=== PATIENT | female | born 1965 | race Caucasian/White ===

== ENCOUNTER 2016-08-30 13:47 | Inpatient (IN) | payer SELFPAY ==
[~2016-08-30] VITALS: Ht 180.3 cm; Wt 76.9 kg
[~2016-08-30 13:47] MED LIST: ALBU8I INH; BETAM.05%T TOP; DIPH2%T PO; FOLI1 PO; IBUP400 PO; METH2.5 PO
[2016-08-30 13:48] VITALS: BP 130/83; PULSE 95; RESP 20; TEMP 97.8; O2SAT 97
--- NOTE | 2016-08-30 13:56 | PD ---
Physical Exam Time Seen by Provider: 13:54 Narrative 51yo F c/o L hand pain, L rib cage pain and bruising, and L scalp swelling after tripping and falling on August 27. Does not know if LOC. Patient was intoxicated w/fall. Denies vomiting after fall. Patient seen in triage. VS reviewed. Awaiting bed placement. Data Data Last Documented VS Vital Signs Date Time Temp Pulse Resp B/P Pulse Ox O2 Delivery O2 Flow Rate FiO2 08/30/16 13:48 97.8 95 20 130/83 97 Room Air MDM Supervised Visit with ASHLEIGH: Janis Ortiz Aug 30, 2016 13:56
[2016-08-30] MEDS ORDERED: DEXAMETHASONE SOD PHOS 4 MG/ML VIAL IV PUSH ONE (14:45)
--- NOTE | 2016-08-30 14:48 | RADRPT ---
EXAM DATE/TIME: 08/30/2016 14:33 [facility] COMPARISON: No previous studies available for comparison. INDICATIONS : Fall 3 days ago, continued cephalgia. RADIATION DOSE: 45.03 CTDIvol (mGy) MEDICAL HISTORY : None SURGICAL HISTORY : None. ENCOUNTER: Initial ACUITY: 3 days PAIN SCALE: 4/10 LOCATION: Bilateral cranial TECHNIQUE: Multiple contiguous axial images were obtained of the head. Using automated exposure control and adj ustment of the mA and/or kV according to patient size, radiation dose was kept as low as reasonably a chievable to obtain optimal diagnostic quality images. DICOM format image data is available electro nically for review and comparison. FINDINGS: CEREBRUM: There is a large spontaneously dense mass in the region of the corpus callosum measuring 3.1 x 4.0 cm . There is surrounding vasogenic edema. This mass is causing mass effect on the frontal horn of both ventricles. The ventricles are normal in size. There is no midline shift. No other areas of hemorrhag e are demonstrated. POSTERIOR FOSSA: The cerebellum and brainstem are intact. The 4th ventricle is midline. The cerebellopontine angle i s unremarkable. EXTRACRANIAL: The visualized portion of the orbits is intact. SKULL: The calvaria is intact. No evidence of skull fracture. The findings are called by telephone to the ER physician. CONCLUSION: There is a large hemorrhagic mass involving the corpus callosum measuring 4.1 x 3.1 cm surrounded by vasogenic edema. These findings are highly suspicious for neoplastic disease. Recommend MRI of the br ain with and without contrast for further evaluation. Aleksander Sanabria MD on August 30, 2016 at 14:40 Board Certified Radiologist. This report was verified electronically.
[2016-08-30 15:41] LABS: BASOPHIL % 0.7 % (0.0-2.0); EOSINOPHIL # 0.1 TH/MM3 (0-0.4); EOSINOPHIL % 2.1 % (0.0-4.0); HEMATOCRIT 39.7 % (35.0-46.0); HEMO FLAGS DIFF FINAL; LYMPH % 19.9 % (9.0-44.0); LYMPHOCYTE # 1.2 TH/MM3 (1.0-4.8); MEAN CORPUSCULAR HEMOGLOBIN 32.1 PG (27.0-34.0); MEAN CORPUSCULAR HGB CONC 33.4 % (32.0-36.0); MONO % 8.3 % (0.0-8.0); PLATELET COUNT 180 TH/MM3 (150-450); RED BLOOD COUNT 4.14 MIL/MM3 (4.00-5.30); RED CELL DISTRIBUTION WIDTH 12.5 % (11.6-17.2); WHITE BLOOD COUNT 5.8 TH/MM3 (4.0-11.0)
[2016-08-30 15:50] LABS: APTT (PATIENT) 26.5 SEC (24.3-30.1); INTERNATIONAL NORMALIZED RATIO 0.9 RATIO; PROTHROMBIN TIME - PATIENT 10.3 SEC (9.8-11.6)
--- NOTE | 2016-08-30 16:05 | RADRPT ---
EXAM DATE/TIME: 08/30/2016 15:39 [facility] COMPARISON: No previous studies available for comparison. INDICATIONS : Fall, complains of pain of posterior left ribs. MEDICAL HISTORY : None. SURGICAL HISTORY : None. ENCOUNTER: Initial ACUITY: 4 - 6 days PAIN SCORE: 10/10 LOCATION: Left posterior ribs FINDINGS: Multiple views of the left ribs were performed. There is no evidence of displaced fracture. No dest ructive lesions or areas of periosteal thickening are seen. Expiratory view of the chest is negative for pneumothorax. The mediastinal structures are midline. CONCLUSION: Negative left rib series. Dani Silva MD on August 30, 2016 at 16:03 Board Certified Radiologist. This report was verified electronically.
--- NOTE | 2016-08-30 16:07 | RADRPT ---
EXAM DATE/TIME: 08/30/2016 15:41 [facility] COMPARISON: No previous studies available for comparison. INDICATIONS : Fall, complains of pain and bruising of left [id number],4th and 5th metacarpals. MEDICAL HISTORY : None. SURGICAL HISTORY : None. ENCOUNTER: Initial ACUITY: 4 - 6 days PAIN SCORE: 10/10 LOCATION: Left hand FINDINGS: The osseous structures of the hand are in normal alignment. No significant degenerative changes. Th e shaft of the 5th metacarpal bone is intact. There is some faint linear calcification in the soft t issues adjacent to the medial 1st digit metacarpophalangeal joint which is of uncertain significance; an avulsion injury cannot be excluded. The carpus is in normal alignment.. CONCLUSION: 1. The metacarpal bones are intact. 2. Calcifications adjacent to the medial aspect of the 1st digit MCP joint of uncertain significance, could represent avulsion injury. Recommend correlation clinically sent for point tenderness in this area. Dani Silva MD on August 30, 2016 at 16:03 Board Certified Radiologist. This report was verified electronically.
--- NOTE | 2016-08-30 16:08 | RADRPT ---
EXAM DATE/TIME: 08/30/2016 15:42 [facility] COMPARISON: No previous studies available for comparison. INDICATIONS : Fell, complains of pain and bruising of left medial wrist MEDICAL HISTORY : None. SURGICAL HISTORY : None. ENCOUNTER: Initial ACUITY: 4 - 6 days PAIN SCORE: 10/10 LOCATION: Left medial wrist FINDINGS: An abduction view of the left carpus navicular demonstrates a normal configuration without evidence o f fracture. CONCLUSION: No navicular fracture seen. Dani Silva MD on August 30, 2016 at 16:06 Board Certified Radiologist. This report was verified electronically.
[2016-08-30 16:15] LABS: BICARBONATE 28.9 MEQ/L (21.0-32.0); POTASSIUM 3.5 MEQ/L (3.5-5.1)
[2016-08-30] MEDS ORDERED: LORazepam 2 MG/ML VIAL IV PUSH ONE (16:45)
[2016-08-30] MEDS ORDERED: GADODIAMIDE PF 287 MG/ML 20 ML VIAL (for RAD MRI) IV ONE (17:48)
--- NOTE | 2016-08-30 17:56 | PD ---
HPI Chief Complaint: Fall Time Seen by Provider: 14:23 Travel History International Travel<30 days: No Contact w/Intl Traveler<30days: No Traveled to known affect area: No History of Present Illness HPI 51-year-old female with a history of psoriasis, who presents today with complaints of head pain, left rib pain, left wrist pain after mechanical fall on August 27. The patient states she was drinking with friends and became extremely intoxicated. She states she reportedly tripped and fell to the ground. She does not recall falling to the ground. She reports pain at the top of her head. She denies any weakness of her extremities. There is no blurry vision. There is no neck pain or stiffness. There are no other complaints time my examination. PFSH Past Medical History Asthma: Yes COPD: Yes Cerebrovascular Accident: Yes (10 yrs ago) Diminished Hearing: No Respiratory: Yes (asthma) Integumentary: Yes (psoriasis) Immunizations Current: Yes Tetanus Vaccination: < 5 Years Influenza Vaccination: No ?: Not Menopausal: Yes Social History Alcohol Use: Yes Tobacco Use: Yes Substance Use: No Allergies-Medications (Allergen,Severity, Reaction): Coded Allergies: Penicillin (Verified Allergy, Severe, Nausea/Vomiting, 12/31/13) Reported Meds & Prescriptions Reported Meds & Active Scripts Active Review of Systems Except as stated in HPI: all other systems reviewed are Neg General / Constitutional: No: Fever, Chills Eyes: No: Diploplia, Blurred Vision HENT: Positive: Headaches, No: Neck Pain Cardiovascular: No: Chest Pain or Discomfort, Palpitations Respiratory: No: Cough, Shortness of Breath Gastrointestinal: No: Nausea, Vomiting, Abdominal Pain Genitourinary: No: Dysuria, Incontinence Musculoskeletal: Positive: Pain (left upper lateral ribs and left wrist/hand) Neurologic: Positive: Headache, No: Weakness, Dizziness, Incontinence, Seizures Physical Exam Narrative GENERAL: Developed well-nourished female in no acute rest her distress. SKIN: Focused skin assessment warm/dry. HEAD: Atraumatic. Normocephalic. EYES: Pupils equal and round. No scleral icterus. No injection or drainage. ENT: No nasal bleeding or discharge. Mucous membranes pink and moist. NECK: Trachea midline. Supple. No posterior spinous process tenderness. CARDIOVASCULAR: Regular rate and rhythm. No murmur appreciated. RESPIRATORY: No accessory muscle use. Clear to auscultation. Breath sounds equal bilaterally. Bruising to the left upper lateral ribs. No crepitance no deformity. GASTROINTESTINAL: Abdomen soft, non-tender, nondistended. Hepatic and splenic margins not palpable. MUSCULOSKELETAL: No obvious deformities. Patient has bruising to her left dorsum of her hand. She does have tenderness over the snuffbox. NEUROLOGICAL: Awake and alert. No obvious cranial nerve deficits. Motor grossly within normal limits. Normal speech. PSYCHIATRIC: Appropriate mood and affect; insight and judgment normal. Data Data Last Documented VS Vital Signs Date Time Temp Pulse Resp B/P Pulse Ox O2 Delivery O2 Flow Rate FiO2 08/30/16 13:48 97.8 95 20 130/83 97 Room Air Orders Hand, Complete ([id number]) (08/30/16 14:16) Ct Brain W/O Iv Contrast(Rout) (08/30/16 14:16) Ribs, Uni (W/Exp Cxr-Min 3vw) (08/30/16 14:16) Wrist, Navicular Views (08/30/16 ) Mri Brain W&W/O Contrast (08/30/16 ) Complete Blood Count With Diff (08/30/16 14:43) Basic Metabolic Panel (Bmp) (08/30/16 14:43) Prothrombin Time / Inr (Pt) (08/30/16 14:43) Act Partial Throm Time (Ptt) (08/30/16 14:43) Dexamethasone Inj (Decadron Inj) (08/30/16 14:45) Lorazepam Inj (Ativan Inj) (08/30/16 16:45) [facility] (08/30/16 16:58) Labs Laboratory Tests Test 08/30/16 14:58 White Blood Count 5.8 TH/MM3 Red Blood Count 4.14 MIL/MM3 Hemoglobin 13.3 GM/DL Hematocrit 39.7 % Mean Corpuscular Volume 96.0 FL Mean Corpuscular Hemoglobin 32.1 PG Mean Corpuscular Hemoglobin 33.4 % Concent Red Cell Distribution Width 12.5 % Platelet Count 180 TH/MM3 Mean Platelet Volume 8.9 FL Neutrophils (%) (Auto) 69.0 % Lymphocytes (%) (Auto) 19.9 % Monocytes (%) (Auto) 8.3 % Eosinophils (%) (Auto) 2.1 % Basophils (%) (Auto) 0.7 % Neutrophils # (Auto) 4.0 TH/MM3 Lymphocytes # (Auto) 1.2 TH/MM3 Monocytes # (Auto) 0.5 TH/MM3 Eosinophils # (Auto) 0.1 TH/MM3 Basophils # (Auto) 0.0 TH/MM3 CBC Comment DIFF FINAL Differential Comment Prothrombin Time 10.3 SEC Prothromb Time International 0.9 RATIO Ratio Activated Partial 26.5 SEC Thromboplast Time Sodium Level 133 MEQ/L Potassium Level 3.5 MEQ/L Chloride Level 96 MEQ/L Carbon Dioxide Level 28.9 MEQ/L Anion Gap 8 MEQ/L Blood Urea Nitrogen 3 MG/DL Creatinine 0.63 MG/DL Estimat Glomerular Filtration 99 ML/MIN Rate Random Glucose 67 MG/DL Calcium Level 9.2 MG/DL MDM Medical Decision Making Medical Screen Exam Complete: Yes Emergency Medical Condition: Yes Differential Diagnosis Traumatic intracranial bleed versus left rib fractures versus left hand fracture versus navicular fracture. Narrative Course This is a 51-year-old female with a history of psoriasis, presents after having a syncopal episode during August 27. The patient states she was intoxicated and passed out. She does not recall the episode but states that she may have tripped prior to passing out. CT scan shows a intracranial hemorrhage that appears to be associated with a mass. Recommendation was for an MRI with and without contrast. Patient was discussed with Dr. Keenan Vanegas, on-call neurosurgeon, who requested a CT angiogram of the brain. The patient has had this ordered. He asked if we could admit the patient to the ICU medical service and have him as a business development consultant. Case was discussed with Dr. Ferguson, I see wired music operator, who agreed to admit the patient his service. Critical Care Narrative Aggregate critical care time was 45 minutes. Time to perform other separately billable procedures was not included in the critical care time. My time did not include minutes spent treating any other patients simultaneously or on activities that did not directly contribute to the patient's treatment. The services I provided to this patient were to treat and/or prevent clinically significant deterioration that could result in: I provided critical care services requiring my management, as noted below: Chart data review, documentation time, medication orders and management, vital sign assessments/reviewing monitor data, ordering and reviewing lab tests, ordering and interpreting/reviewing x-rays and diagnostic studies, care of the patient and discussion of the patient with the admitting physicians. Diagnosis Primary Impression: Intracranial hemorrhage Additional Impressions: Contusion of rib on left side Contusion of left hand Admitting Information Admitting Physician Requests: Admit Neo Ramirez MD Aug 30, 2016 17:56
[2016-08-30] MEDS ORDERED: HYDROmorphone HCL PF 1 MG/ML VIAL IV PRN ×2 (18:00)
[2016-08-30] MEDS ORDERED: SODIUM CHLORIDE 0.9% FLUSH 5 ML FLUSH IVF PRN (18:00)
[2016-08-30] MEDS ORDERED: NALOXONE HCL 0.4 MG/ML AMP IV PRN (18:00)
[2016-08-30] MEDS ORDERED: ACETAMINOPHEN/HYDROcodone 325 MG/5 MG TAB PO PRN (18:00)
[2016-08-30] MEDS ORDERED: ACETAMINOPHEN/HYDROcodone 325 MG/10 MG TAB PO PRN (18:00)
[2016-08-30] MEDS ORDERED: NS + KCL 20 MEQ INJ 1,000 ML IV SCH (18:00)
[2016-08-30 18:01] VITALS: BP 117/71; PULSE 84; RESP 16; TEMP 98.1; O2SAT 97
[2016-08-30] MEDS ORDERED: RESP: ALBUTEROL 2.5 MG/IPRATROPIUM 0.5 MG NEB (PRN) INH (18:30)
[2016-08-30] MEDS ORDERED: BISACODYL 10 MG SUPP RECTAL PRN (18:30)
[2016-08-30] MEDS ORDERED: CHLORHEXIDINE GLUCONATE 2 % 1 PACK (2 CLOTHS) TOP PRN (18:30)
[2016-08-30] MEDS ORDERED: MAGNESIUM HYDROXIDE SUSP 30 ML CUP PO PRN (18:30)
[2016-08-30] MEDS ORDERED: SENNOSIDES 8.6 MG TAB PO PRN (18:30)
[2016-08-30] MEDS ORDERED: MISCELLANEOUS NURSING INFORMATION XX SCH (18:30)
[2016-08-30] MEDS ORDERED: LACTULOSE SYRUP 20 GM/30 ML CUP PO PRN (18:30)
[2016-08-30] MEDS ORDERED: LABETALOL HCL 100 MG/20 ML VIAL IV PUSH PRN (18:30)
[2016-08-30] MEDS ORDERED: ACETAMINOPHEN 325 MG TAB PO PRN (18:30)
--- NOTE | 2016-08-30 18:38 | HHI.HP ---
[facility] Service Critical Care Medicine Primary Care Physician Tish Power MD Admission Diagnosis intracranial hemorrhage, left rib contusion, left wrist contusion Diagnosis: (1) Intracranial space-occupying lesion found on diagnostic imaging of central nervous system Diagnosis: Principal (2) Intracranial hemorrhage Diagnosis: Principal Chief Complaint: Fall, headache. Travel History International Travel<30 Days: No Contact w/Intl Traveler <30 Da: No Traveled to Known Affected Are: No History of Present Illness 51 y/o woman fell 3 days ago while intoxicated and is amnesic for the cause of the fall. Seen today due to head ache and left chest and hand pain. No nausea, vomiting, seizures, black-outs, fainting. CT Head reveals a large midline mass with hemorrhage. MRI ordered for further clarification. Normotensive. X-rays of left hand, wrist, ribs are negative for injury. Past Family Social History Allergies: Coded Allergies: Penicillin (Verified Allergy, Severe, Nausea/Vomiting, 12/31/13) Past Medical History Past Medical History Asthma: Yes COPD: Yes Cerebrovascular Accident: Yes (10 yrs ago) Diminished Hearing: No Respiratory: Yes (asthma) Integumentary: Yes (psoriasis) Immunizations Current: Yes Tetanus Vaccination: < 5 Years Influenza Vaccination: No ?: Not Menopausal: Yes Social History Alcohol Use: Yes Tobacco Use: Yes Substance Use: No Allergies-Medications Allergies-Medications (Allergen,Severity, Reaction): Coded Allergies: Penicillin (Verified Allergy, Severe, Nausea/Vomiting, 12/31/13) Reported Meds & Prescriptions Reported Meds & Active Scripts Active Physical Exam Vital Signs Vital Signs Date Time Temp Pulse Resp B/P Pulse Ox O2 Delivery O2 Flow Rate FiO2 08/30/16 18:01 98.1 84 16 117/71 97 Room Air 08/30/16 13:48 97.8 95 20 130/83 97 Room Air Physical Exam Gen: Anxious appearing. Head: Bruise left side of forehead, old. Neck: Supple, airway widely patent. Lungs: Clear, no wheezes or crackles. Comfortable pattern. Heart: NL S1S2, no m,r, No JVD, RRR. Abdomen: Soft, non guarding, no tenderness, BS active. Extremities: Warm, well perfused. Neuro: O X 3, alert, cooperative. Moves 4 limbs with 5/5 strengtrh and to command. MARISSA, eoms intact. Shoulder shrug, smile, grimace symmetrical. Tongue midline. Laboratory Laboratory Tests Test 08/30/16 14:58 White Blood Count 5.8 Red Blood Count 4.14 Hemoglobin 13.3 Hematocrit 39.7 Mean Corpuscular Volume 96.0 Mean Corpuscular Hemoglobin 32.1 Mean Corpuscular Hemoglobin 33.4 Concent Red Cell Distribution Width 12.5 Platelet Count 180 Mean Platelet Volume 8.9 Neutrophils (%) (Auto) 69.0 Lymphocytes (%) (Auto) 19.9 Monocytes (%) (Auto) 8.3 Eosinophils (%) (Auto) 2.1 Basophils (%) (Auto) 0.7 Neutrophils # (Auto) 4.0 Lymphocytes # (Auto) 1.2 Monocytes # (Auto) 0.5 Eosinophils # (Auto) 0.1 Basophils # (Auto) 0.0 CBC Comment DIFF FINAL Differential Comment Prothrombin Time 10.3 Prothromb Time International 0.9 Ratio Activated Partial 26.5 Thromboplast Time Sodium Level 133 Potassium Level 3.5 Chloride Level 96 Carbon Dioxide Level 28.9 Anion Gap 8 Blood Urea Nitrogen 3 Creatinine 0.63 Estimat Glomerular Filtration 99 Rate Random Glucose 67 Calcium Level 9.2 Result Diagram: 08/30/16 1458 08/30/[address] Head: Enhancing 3 X 4 cm midline brain mass. Assessment and Plan Assessment and Plan Assessment: 1. 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 Fall while intoxicated. Plan: 1. Admit ICU. 2. Neurosurgical evaluation. 3. Bed rest, up with assistance. 4. Seizure prophylaxis? 5. No chemical DVT Px for now. 6. SCDs. Overall impression: Large, enhancing midline brain mass appears to be arising from the genu of the corpus callosum. There appears to be hemorrhage in the mass but it is unclear whether this is related to her fall 3 days ago. She will require brain biopsy unless metastatic workup reveals an associated lesion in the chest or abdomen (which is doubtful). Neo Duval MD Aug 30, 2016 18:38
[2016-08-30] MEDS ORDERED: IOHEXOL 350 MG/ML 10 ML VIAL (for RAD DIAG) IV ONE (18:47)
--- NOTE | 2016-08-30 18:51 | RADRPT ---
EXAM DATE/TIME: 08/30/2016 16:59 [facility] COMPARISON: No previous studies available for comparison. INDICATIONS : Mass. CONTRAST: 15 cc Omniscan (gadodiamide) IV MEDICAL HISTORY : CVA SURGICAL HISTORY : None. ENCOUNTER: Initial ACUITY: 1 day PAIN SCORE: 10/10 LOCATION: Cranial TECHNIQUE: Multiplanar, multisequence MRI of the brain was performed both prior to and following the administrat ion of paramagnetic contrast. FINDINGS: MRI confirms a large mass involving the corpus callosum showing some hemorrhage and intense contrast enhancement. This is associated with moderate mass effect. There is no other abnormal areas of contrast enhancement. Posterior fossa is unremarkable. CONCLUSION: Glioma versus glioblastoma, glioblastoma is favored involving the genu of the corpus callosum. The a umm is associated with hemorrhage and intense enhancement. Jayme Beauchamp MD FACR on August 30, 2016 at 18:26 Board Certified Radiologist. This report was verified electronically.
[2016-08-30] MEDS: SODIUM CHLOR 0.9% 1000 ML INJ 1,000 ML IV SCH (19:12)
--- NOTE | 2016-08-30 19:24 | RADRPT ---
EXAM DATE/TIME: 08/30/2016 18:26 [facility] COMPARISON: No previous studies available for comparison. INDICATIONS : Evaluate for aneurysm. IV CONTRAST: 75 cc Omnipaque 350 (iohexol) IV RADIATION DOSE: 14.36 CTDIvol (mGy) MEDICAL HISTORY : Cerebrovascular disease. SURGICAL HISTORY : None. ENCOUNTER: Initial ACUITY: 1 day PAIN SCALE: 0/10 LOCATION: cranial TECHNIQUE: Volumetric scanning was performed using a multi-row detector CT scanner. The data was post processed with a variety of visualization algorithms including full volume maximum intensity projection, multi -planar sliding thin slab reformation, curved planar reformation, and surface rendering techniques. Using automated exposure control and adjustment of the mA and/or kV according to patient size, radiat ion dose was kept as low as reasonably achievable to obtain optimal diagnostic quality images. DICO M format image data is available electronically for review and comparison. FINDINGS: There is excellent visualization of the major intracranial arteries out to the second-order branch ve ssels. There is no evidence for aneurysm, vessel truncation or stenosis, and no evidence for vascula r malformation. There is no aneurysm. Large butterfly glioma/glioblastoma is noted. CONCLUSION: There is no aneurysm. Jayme Beauchamp MD FACR on August 30, 2016 at 19:20 Board Certified Radiologist. This report was verified electronically.
[2016-08-30 19:28] VITALS: BP 116/70; PULSE 81; RESP 18; O2SAT 97
--- NOTE | 2016-08-30 19:28 | RADRPT ---
EXAM DATE/TIME: 08/30/2016 18:26 [facility] COMPARISON: No previous studies available for comparison. INDICATIONS : Evaluate for aneurysm. IV CONTRAST: 75 cc Omnipaque 350 (iohexol) IV RADIATION DOSE: CTDIvol (mGy) MEDICAL HISTORY : Cerebrovascular disease. SURGICAL HISTORY : None. ENCOUNTER: Initial ACUITY: 1 day PAIN SCALE: 0/10 LOCATION: cranial Elevated flow velocities and ICA/CCA ratios have been found to correlate with increased degrees of vessel stenosis, calculated as percentage of diameter relative to a normal segment of distal ICA/CCA. TECHNIQUE: Volumetric scanning was performed using a multirow detector CT scanner. The data was post processed with a variety of visualization algorithms including full-volume maximum intensity projection, multip lanar sliding thin-slab reformation, curved-planar reformation, and surface-rendering techniques. Us ing automated exposure control and adjustment of the mA and/or kV according to patient size, radiatio n dose was kept as low as reasonably achievable to obtain optimal diagnostic quality images. DICOM f ormat image data is available electronically for review and comparison. FINDINGS: AORTIC ARCH: There is a three-vessel origin of the great vessels from the aorta. No evidence of ostial narrowing. RIGHT CAROTID: The common carotid artery is intact. The carotid bulb has a normal configuration without ulceration o r narrowing. The internal carotid artery lumen is smooth without stenosis. The external carotid florinda ry is intact. LEFT CAROTID: The common carotid artery is intact. The carotid bulb has a normal configuration without ulceration or narrowing. The internal carotid artery lumen is smooth without stenosis. The external carotid ar luis e is intact. VERTEBRALS: The vertebral arteries have a symmetric diameter. No stenotic lesions are seen. CONCLUSION: Negative for hemodynamically significant stenosis. Jayme Beauchamp MD FACR on August 30, 2016 at 19:24 Board Certified Radiologist. This report was verified electronically.
[2016-08-30 20:40] VITALS: BP 115/72
[2016-08-30] MEDS ORDERED: DOCUSATE SODIUM 100 MG CAP PO SCH (21:00)
[2016-08-30] MEDS: SODIUM CHLORIDE 0.9% FLUSH 5 ML FLUSH IVF SCH (21:00)
--- NOTE | 2016-08-30 21:29 | PD.CONS ---
History of Present Illness Service Neurosurgery Consult Requested By Dr Neo Ramirez Reason for Consult Intracranial hemorrhage Primary Care Physician Tish Power MD Diagnoses: History of Present Illness The patient is a pleasant 51-year-old lady who states that she was rather intoxicated on 27 August and recalls falling and probably striking her head. She does not really seem to recall any details. Since then she has had some pain and swelling over the left forehead and some pain in her left hand. She presented to the emergency room today primarily because of pain in her left rib cage and her left wrist. The course of her emergency room evaluation she has undergone a CT scan of the head which initially revealed a large hemorrhagic mass in the corpus callosum measuring approximately 3 x 4 cm with surrounding vasogenic edema primarily in the right frontal lobe. An MRI and a CT angiogram of the brain have also been subsequently performed. The patient denies any recent headaches. She gives a vague history of occasional migraine headaches. She denies any dizziness, blurred vision diplopia ,speech difficulty, significant memory loss, word finding difficulty, pain weakness and numbness in the upper or lower extremities or difficulty with ambulation or coordination. She indicates general fatigue and decreased appetite over the past few weeks but seems to indicate that this is not unusual for her. No fevers or chills. Review of Systems Constitutional: COMPLAINS OF: Fatigue, DENIES: Fever, Weight loss Eyes: DENIES: Blurred vision, Diplopia Ears, nose, mouth, throat: DENIES: Hearing loss, Vertigo Respiratory: COMPLAINS OF: Shortness of breath, DENIES: Cough Cardiovascular: DENIES: Chest pain, Palpitations Gastrointestinal: DENIES: Diarrhea, Nausea, Vomiting Musculoskeletal: COMPLAINS OF: Joint pain, Back pain, Neck pain Hematologic/lymphatic: COMPLAINS OF: Bruising Neurologic: DENIES: Abnormal gait, Headache, Localized weakness, Poor Balance Psychiatric: DENIES: Anxiety, Confusion Past Family Social History Allergies: Coded Allergies: Penicillin (Verified Allergy, Severe, Nausea/Vomiting, 12/31/13) Past Medical History History of asthma, COPD She states she had a previous stroke many years ago, but upon questioning it appears that she likely had a concussion. Psoriasis Chronic low back pain Past Surgical History Does not indicate any major surgeries in the past Reported Medications She takes Tylenol and a nonsteroidal anti-inflammatory medication in the evenings Family History Negative for diabetes cancer, cardiac disease Social History She smokes half-pack cigarettes a day for many years. Drinks 2 or 3 alcoholic beverages per day. Lives with her significant other. Physical Exam Vital Signs Vital Signs Date Time Temp Pulse Resp B/P Pulse Ox O2 Delivery O2 Flow Rate FiO2 08/30/16 20:40 74 18 115/72 96 08/30/16 19:28 81 18 116/70 97 Room Air 08/30/16 18:01 98.1 84 16 117/71 97 Room Air 08/30/16 13:48 97.8 95 20 130/83 97 Room Air Physical Exam GENERAL: This is a well-nourished, well-developed patient, in no apparent distress. SKIN: No skin lesions or rash. HEAD: Mild tenderness edema and ecchymosis over the left forehead EYES: Sclerae are clear and nonicteric. No periorbital edema or ecchymosis ENT:Oropharynx is clear. Intact dentition. NECK: Trachea midline. Supple, nontender, no meningeal signs. CARDIOVASCULAR: Regular rate and rhythm without murmurs, gallops, or rubs. RESPIRATORY: Clear to auscultation. Breath sounds equal bilaterally. No wheezes , rales, or rhonchi. GASTROINTESTINAL: Abdomen soft, non-tender, nondistended. No hepato-splenomegaly , or palpable masses. No guarding. MUSCULOSKELETAL: Extremities without cyanosis, or edema. Mild lower lumbar tenderness. Posterior tibial pulse 2+ bilateral. No extremity atrophy or fasciculations NEUROLOGICAL: Awake and alert Oriented X 3 Speech is clear. She seems to have mild slowing of her thought processes Conversant and appropriate Follow simple commands well Answers questions appropriately Reasonable judgment and insight Recent and remote memory are intact. Recalls 2 of 3 objects at 5 minutes No evidence of anxiety or depression Pupils are equal and reactive to accommodation. Extra-ocular movements, visual padron to confrontation, facial sensorimotor, tongue, palate, sternocleidomastoid testing, hearing to finger rub testing, and bilateral shoulder shrug are all intact. Sensation is intact to light touch in all extremities Strength normal major flexion and extension groups all extremities Gurinder's absent bilaterally No ankle clonus Plantar responses absent bilateral Fine motor movements intact upper extremities Laboratory Laboratory Tests Test 08/30/16 14:58 White Blood Count 5.8 Red Blood Count 4.14 Hemoglobin 13.3 Hematocrit 39.7 Mean Corpuscular Volume 96.0 Mean Corpuscular Hemoglobin 32.1 Mean Corpuscular Hemoglobin 33.4 Concent Red Cell Distribution Width 12.5 Platelet Count 180 Mean Platelet Volume 8.9 Neutrophils (%) (Auto) 69.0 Lymphocytes (%) (Auto) 19.9 Monocytes (%) (Auto) 8.3 Eosinophils (%) (Auto) 2.1 Basophils (%) (Auto) 0.7 Neutrophils # (Auto) 4.0 Lymphocytes # (Auto) 1.2 Monocytes # (Auto) 0.5 Eosinophils # (Auto) 0.1 Basophils # (Auto) 0.0 CBC Comment DIFF FINAL Differential Comment Prothrombin Time 10.3 Prothromb Time International 0.9 Ratio Activated Partial 26.5 Thromboplast Time Sodium Level 133 Potassium Level 3.5 Chloride Level 96 Carbon Dioxide Level 28.9 Anion Gap 8 Blood Urea Nitrogen 3 Creatinine 0.63 Estimat Glomerular Filtration 99 Rate Random Glucose 67 Calcium Level 9.2 Result Diagram: 08/30/16 1458 08/30/16 1458 Imaging 08/30/16 CT scan of the head, MRI of the brain, and CT angiogram of the brain images have all been reviewed by the undersigned. Agree with findings as noted below: Ribs X-Ray 08/30/161415 Signed Impressions: Service Date/Time: Tuesday, August 30, 2016 15:39 - CONCLUSION: Negative left rib series. Dani Silva MD Head CT 08/30/161415 Signed Impressions: Service Date/Time: Tuesday, August 30, 2016 14:33 - CONCLUSION: There is a large hemorrhagic mass involving the corpus callosum measuring 4.1 x 3.1 cm surrounded by vasogenic edema. These findings are highly suspicious for neoplastic disease. Recommend MRI of the brain with and without contrast for further evaluation. Aleksander Sanabria MD Hand X-Ray 08/30/16 141 Signed Impressions: Service Date/Time: Tuesday, August 30, 2016 15:41 - CONCLUSION: 1. The metacarpal bones are intact. 2. Calcifications adjacent to the medial aspect of the 1st digit MCP joint of uncertain significance, could represent avulsion injury. Recommend correlation clinically sent for point tenderness in this area. Dani Silva MD Wrist X-Ray 08/30/16 0000 Signed Impressions: Service Date/Time: Tuesday, August 30, 2016 15:42 - CONCLUSION: No navicular fracture seen. Dani Silva MD Neck CTA 08/30/16 0000 Signed Impressions: Service Date/Time: Tuesday, August 30, 2016 18:26 - CONCLUSION: Negative for hemodynamically significant stenosis. Jayme Beauchamp MD FACR Head CTA 08/30/16 0000 Signed Impressions: Service Date/Time: Tuesday, August 30, 2016 18:26 - CONCLUSION: There is no aneurysm. Jayme Beauchamp MD FACR Brain MRI 08/30/16 0000 Signed Impressions: Service Date/Time: Tuesday, August 30, 2016 16:59 - CONCLUSION: Glioma versus glioblastoma, glioblastoma is favored involving the genu of the corpus callosum. The area is associated with hemorrhage and intense enhancement. Jayme Beauchamp MD FACR Assessment and Plan Assessment and Plan Impression: 1. Large hemorrhagic mass arising in the region of the corpus callosum with hemorrhage extending to the bilateral posterior frontal lobe with compression of the frontal horn of the right and left lateral ventricle. No intraventricular hemorrhage. 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 2. History of asthma-COPD Recommendations: Findings were discussed at length with the patient. A CT scan of the chest and abdomen-pelvis will be obtained to determine if there is any indication of primary neoplastic disease. The studies are negative , the patient is advised that a brain biopsy would be indicated to more specifically determine the nature of the anterior corpus callosum region lesion. She is being admitted to the intensive surgical care unit for close neurologic checks. She is a risk for further hemorrhage. Keenan Vanegas MD Aug 30, 2016 21:29
[2016-08-30 22:00] VITALS: BP 121/73; PULSE 81; RESP 14; TEMP 98; O2SAT 98
[2016-08-30] MEDS: DOCUSATE SODIUM 50 MG/SENNA 8.6 MG TAB PO SCH (22:43)
[2016-08-31] VITALS (7 sets, daily range): BP systolic 105–118; BP diastolic 59–85; PULSE 68–96; RESP 20–24; TEMP 97.8–98.1; O2SAT 97–99
[2016-08-31] MEDS: CHLORHEXIDINE GLUCONATE 2 % 1 PACK (2 CLOTHS) TOP SCH (04:00)
[2016-08-31 04:26] LABS: AUTOMATED NEUTROPHIL # 4.8 TH/MM3 (1.8-7.7); BASOPHIL % 0.1 % (0.0-2.0); HEMATOCRIT 37.1 % (35.0-46.0); HEMO FLAGS DIFF FINAL; LYMPH % 8.7 % (9.0-44.0); LYMPHOCYTE # 0.5 TH/MM3 (1.0-4.8); MEAN CELL VOLUME 95.2 FL (80.0-100.0); MEAN CORPUSCULAR HGB CONC 33.6 % (32.0-36.0); MONO % 2.7 % (0.0-8.0); NEUT % 88.5 % (16.0-70.0); PLATELET COUNT 181 TH/MM3 (150-450); RED CELL DISTRIBUTION WIDTH 12.4 % (11.6-17.2); WHITE BLOOD COUNT 5.4 TH/MM3 (4.0-11.0)
[2016-08-31 04:36] LABS: APTT (PATIENT) 26.7 SEC (24.3-30.1); PROTHROMBIN TIME - PATIENT 10.5 SEC (9.8-11.6)
[2016-08-31 05:30] LABS: BICARBONATE 26.6 MEQ/L (21.0-32.0); MAGNESIUM 1.6 MG/DL (1.5-2.5); POTASSIUM 3.8 MEQ/L (3.5-5.1)
[2016-08-31] MEDS ORDERED: IOHEXOL 350 MG/ML 10 ML VIAL (for RAD DIAG) IV ONE (08:17)
[2016-08-31] MEDS: SODIUM CHLOR 0.9% 1000 ML INJ 1,000 ML IV SCH ×2 (08:36→22:54)
--- NOTE | 2016-08-31 08:36 | RADRPT ---
EXAM DATE/TIME: 08/31/2016 08:10 [facility] COMPARISON: No previous studies available for comparison. INDICATIONS : Lesion seen on MRI brain, evaluate for metastasis. IV CONTRAST: 90 cc Omnipaque 350 (iohexol) IV ; Cumulative dose for multiple exams. RADIATION DOSE: 11.25 CTDIvol (mGy) ; Combined studies MEDICAL HISTORY : Chronic obstructive pulmonary disease. Stroke SURGICAL HISTORY : None. ENCOUNTER: Initial ACUITY: 1 day PAIN SCALE: 0/10 LOCATION: Bilateral chest TECHNIQUE: Volumetric scanning of the chest was performed. Using automated exposure control and adjustment of t he mA and/or kV according to patient size, radiation dose was kept as low as reasonably achievable to obtain optimal diagnostic quality images. DICOM format image data is available electronically for review and comparison. FINDINGS: LUNGS: There is no consolidation or pneumothorax. No concerning pulmonary nodule is visualized. PLEURA: There is no pleural thickening or pleural effusion. MEDIASTINUM: The heart and great vessels demonstrate no acute abnormality. There is no mediastinal or hilar lymph adenopathy. AXILLAE: Within normal limits. No lymphadenopathy. SKELETAL: Within normal limits for patient age. MISCELLANEOUS: The visualized upper abdominal organs demonstrate no acute abnormality. CONCLUSION: Normal examination. Jose Carlos Canales MD on August 31, 2016 at 8:34 Board Certified Radiologist. This report was verified electronically.
--- NOTE | 2016-08-31 08:43 | RADRPT ---
EXAM DATE/TIME: 08/31/2016 08:10 [facility] COMPARISON: No previous studies available for comparison. INDICATIONS : Lesion seen on MRI brain, evaluate for metastasis. IV CONTRAST: 90 cc Omnipaque 350 (iohexol) IV ; Cumulative dose for multiple exams. ORAL CONTRAST: No oral contrast ingested. RADIATION DOSE: 11.25 CTDIvol (mGy) ; Combined studies MEDICAL HISTORY : Chronic obstructive pulmonary disease. Stroke SURGICAL HISTORY : None. ENCOUNTER: Initial ACUITY: 1 day PAIN SCALE: 0/10 LOCATION: Bilateral abdomen TECHNIQUE: Volumetric scanning of the abdomen and pelvis was performed. Using automated exposure control and ad justment of the mA and/or kV according to patient size, radiation dose was kept as low as reasonably achievable to obtain optimal diagnostic quality images. DICOM format image data is available electro nically for review and comparison. FINDINGS: LOWER LUNGS: The visualized lower lungs are clear. LIVER: Homogeneous density without lesion. There is no dilation of the biliary tree. No calcified gallston es. SPLEEN: Normal size without lesion. PANCREAS: Within normal limits. KIDNEYS: Normal in size and shape. There is no mass, stone or hydronephrosis. ADRENAL GLANDS: Within normal limits. VASCULAR: There is no aortic aneurysm. BOWEL/MESENTERY: The stomach, small bowel, and colon demonstrate no acute abnormality. There is no free intraperitone al air or fluid. ABDOMINAL WALL: Within normal limits. RETROPERITONEUM: There is no lymphadenopathy. BLADDER: No wall thickening or mass. REPRODUCTIVE: The uterus is quite lobulated. There is a hyperdense area in the superior anterior uterus could be a leiomyoma measuring 2.6 x 2.1 cm. The uterus also lobulated to the left of midline with a central power cification. That area measures 1 x 3.7 cm could be an additional leiomyoma. 1 cm low-density lesion i n the posterior uterus could be an additional leiomyoma. Neither ovary is enlarged. INGUINAL: There is no lymphadenopathy or hernia. MUSCULOSKELETAL: Sclerotic area in the right femoral head could be avascular necrosis. CONCLUSION: Lobulated uterus raises the possibility of multiple leiomyoma. Outpatient ultrasound of the uterus ma y be helpful to better characterize these lesions. No evidence of adenopathy, mass, or etiology for metastatic disease is identified. Jose Carlos Canales MD on August 31, 2016 at 8:38 Board Certified Radiologist. This report was verified electronically.
[2016-08-31] MEDS ORDERED: PANTOPRAZOLE SODIUM 40 MG VIAL IVP SCH (09:00)
[2016-08-31] MEDS: PANTOPRAZOLE SOD 40 MG DELAYED RELEASE TAB PO SCH (09:43)
[2016-08-31] MEDS: SODIUM CHLORIDE 0.9% FLUSH 5 ML FLUSH IVF SCH ×2 (09:43→21:00)
[2016-08-31] MEDS: MORPHINE SULFATE 4 MG/ML INJ IV PRN ×3 (09:43→20:59)
[2016-08-31] MEDS: DOCUSATE SODIUM 50 MG/SENNA 8.6 MG TAB PO SCH ×2 (09:43→21:01)
--- NOTE | 2016-08-31 13:59 | HHI.CCPN ---
Subjective Remarks/Hospital Course 08/30: 51 y/o woman fell 3 days ago while intoxicated and is amnesic for the cause of the fall. Seen today due to head ache and left chest and hand pain. No nausea, vomiting, seizures, black-outs, fainting. CT Head reveals a large midline mass with hemorrhage. MRI ordered for further clarification. Normotensive. X-rays of left hand, wrist, ribs are negative for injury. 08/31: Resting in bed comfortably. Nothing by mouth currently awaiting biopsy of cerebral mass. Denies any headache shortness of breath or chest pain currently. Objective Vital Signs Date Time Temp Pulse Resp B/P Pulse Ox O2 Delivery O2 Flow Rate FiO2 08/31/16 12:00 97.8 74 20 118/67 98 08/31/16 08:20 Room Air Result Diagram: 08/31/168 08/31/168 Imaging Last Impressions Chest CT 08/31/16599 Signed Impressions: Service Date/Time: Wednesday, August 31, 2016 08:10 - CONCLUSION: Normal examination. Jose Carlos Canales MD Abdomen/Pelvis CT 08/31/16599 Signed Impressions: Service Date/Time: Wednesday, August 31, 2016 08:10 - CONCLUSION: Lobulated uterus raises the possibility of multiple leiomyoma. Outpatient ultrasound of the uterus may be helpful to better characterize these lesions. No evidence of adenopathy, mass, or etiology for metastatic disease is identified. Jose Carlos Canales MD Ribs X-Ray 08/30/161415 Signed Impressions: Service Date/Time: Tuesday, August 30, 2016 15:39 - CONCLUSION: Negative left rib series. Dani Silva MD Head CT 08/30/161415 Signed Impressions: Service Date/Time: Tuesday, August 30, 2016 14:33 - CONCLUSION: There is a large hemorrhagic mass involving the corpus callosum measuring 4.1 x 3.1 cm surrounded by vasogenic edema. These findings are highly suspicious for neoplastic disease. Recommend MRI of the brain with and without contrast for further evaluation. Aleksander Sanabria MD Hand X-Ray 08/30/161415 Signed Impressions: Service Date/Time: Tuesday, August 30, 2016 15:41 - CONCLUSION: 1. The metacarpal bones are intact. 2. Calcifications adjacent to the medial aspect of the 1st digit MCP joint of uncertain significance, could represent avulsion injury. Recommend correlation clinically sent for point tenderness in this area. Dani Silva MD Wrist X-Ray 08/30/16 Signed Impressions: Service Date/Time: Tuesday, August 30, 2016 15:42 - CONCLUSION: No navicular fracture seen. Dani Silva MD Neck CTA 08/30/16 Signed Impressions: Service Date/Time: Tuesday, August 30, 2016 18:26 - CONCLUSION: Negative for hemodynamically significant stenosis. Jayme Beauchamp MD FACR Head CTA 08/30/16 Signed Impressions: Service Date/Time: Tuesday, August 30, 2016 18:26 - CONCLUSION: There is no aneurysm. Jayme Beauchamp MD FACR Brain MRI 08/30/16 Signed Impressions: Service Date/Time: Tuesday, August 30, 2016 16:59 - CONCLUSION: Glioma versus glioblastoma, glioblastoma is favored involving the genu of the corpus callosum. The area is associated with hemorrhage and intense enhancement. Jayme Beauchamp MD FACR Objective Remarks Gen: Middle-aged female sitting up in bed not in any acute distress Head: Bruise left side of forehead, old. Neck: Supple, airway widely patent. Lungs: Clear to auscultation bilaterally, no wheezing or crackles Heart: NL S1S2, no m,r, No JVD, RRR. Abdomen: Soft, non guarding, no tenderness, BS active. Extremities: Warm, well perfused. JESUS wrap over left hand/ forearm Neuro: AAO X 3. Moves 4 limbs with 5/5 strength and to command. MARISSA, eoms intact. Shoulder shrug, smile, grimace symmetrical. Tongue midline. A/P Assessment and Plan Assessment: 1. 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 Fall while intoxicated. Plan: 1. Admit ICU. 2. Neurosurgical evaluation. Dr. Vanegas planning biopsy of cerebral mass. 3. Bed rest, up with assistance. 4. Seizure prophylaxis? 5. No chemical DVT Px for now. 6. SCDs. Overall impression: Large, enhancing midline brain mass appears to be arising from the genu of the corpus callosum. There appears to be hemorrhage in the mass but it is unclear whether this is related to her fall 3 days ago. Awaiting brain biopsy. CT chest abdomen pelvis with no evidence of metastatic disease. Will consult and transfer to hospitalist service tomorrow for further medical management. Fransisco Mustafa MD Aug 31, 2016 13:59
[2016-08-31] MEDS ORDERED: LORazepam 1 MG TAB PO PRN (14:00)
[2016-08-31] MEDS ORDERED: FLUMAZENIL 0.5 MG/5 ML VIAL IV PUSH PRN (14:00)
[2016-08-31] MEDS ORDERED: LORazepam 2 MG/ML VIAL IV PUSH PRN ×2 (14:00)
[2016-08-31] MEDS ORDERED: LORazepam 2 MG TAB PO PRN (14:00)
[2016-08-31] MEDS: NICOTINE 14 MG/24 HR PATCH T-DERMAL SCH (15:41)
--- NOTE | 2016-08-31 21:05 | HHI.NSPN ---
History Chief Complaint: no complaints Interval History Patient admitted 08/30/16 through the emergency room where she presented with complaint of left chest and arm pain following a fall on August 27. Initial CT imaging revealed a hemorrhagic mass in the region of the corpus callosum, bilateral posterior medial frontal lobes, confirmed with follow-up MRI imaging. 08/31/16: Remained stable, and no headache blurred vision diplopia speech difficulty weakness or numbness in the extremities. Exam Results Vital Signs Date Time Temp Pulse Resp B/P Pulse Ox O2 Delivery O2 Flow Rate FiO2 08/31/16 16:00 97.9 76 20 106/68 97 08/31/16 08:20 Room Air Physical Examination Respirations clear and regular Heart rate regular Abdomen soft nontender No extremity edema The significant neck pain Mild low back tenderness Awake alert oriented conversant and appropriate May have slight speech hesitancy Seems to have reasonable judgment and insight Recent and remote memory are intact Extraocular movements fascial sensorimotor testing intact Sensation intact all extremities to light touch Strength normal major flexion and extension groups all extremities Lab, Micro, Other Results Laboratory Tests Test 08/30/16 08/31/16 22:44 03:58 Nasal Screen MRSA (PCR) MRSA NOT DETECTED White Blood Count 5.4 TH/MM3 Red Blood Count 3.90 MIL/MM3 Hemoglobin 12.5 GM/DL Hematocrit 37.1 % Mean Corpuscular Volume 95.2 FL Mean Corpuscular Hemoglobin 32.0 PG Mean Corpuscular Hemoglobin 33.6 % Concent Red Cell Distribution Width 12.4 % Platelet Count 181 TH/MM3 Mean Platelet Volume 8.9 FL Neutrophils (%) (Auto) 88.5 % Lymphocytes (%) (Auto) 8.7 % Monocytes (%) (Auto) 2.7 % Eosinophils (%) (Auto) 0.0 % Basophils (%) (Auto) 0.1 % Neutrophils # (Auto) 4.8 TH/MM3 Lymphocytes # (Auto) 0.5 TH/MM3 Monocytes # (Auto) 0.1 TH/MM3 Eosinophils # (Auto) 0.0 TH/MM3 Basophils # (Auto) 0.0 TH/MM3 CBC Comment DIFF FINAL Differential Comment Prothrombin Time 10.5 SEC Prothromb Time International 1.0 RATIO Ratio Activated Partial 26.7 SEC Thromboplast Time Sodium Level 135 MEQ/L Potassium Level 3.8 MEQ/L Chloride Level 99 MEQ/L Carbon Dioxide Level 26.6 MEQ/L Anion Gap 9 MEQ/L Blood Urea Nitrogen 4 MG/DL Creatinine 0.41 MG/DL Estimat Glomerular Filtration 162 ML/MIN Rate Random Glucose 216 MG/DL Calcium Level 9.3 MG/DL Phosphorus Level 3.4 MG/DL Magnesium Level 1.6 MG/DL Medical Decision Making Impression and Plan Impression: 1. Large hemorrhagic mass in the region of the corpus callosum extending to the posterior medial bilateral frontal lobe. CT scan chest abdomen and pelvis negative for primary lesion. 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 Operating room called today regarding scheduling-attempting to schedule for stereotactic biopsy 09/02/16. She appears stable at the present time for transferred to regular floor. Continuing diet. Out of bed as tolerated Keenan Vanegas MD Aug 31, 2016 21:05
[2016-09-01] VITALS (7 sets, daily range): BP systolic 91–122; BP diastolic 64–79; PULSE 66–82; RESP 20–24; TEMP 96.2–97.2; O2SAT 93–99
[2016-09-01] MEDS: CHLORHEXIDINE GLUCONATE 2 % 1 PACK (2 CLOTHS) TOP SCH (04:00)
[2016-09-01] MEDS: MORPHINE SULFATE 4 MG/ML INJ IV PRN (05:57)
[2016-09-01] MEDS: PROMETHAZINE INJ 25 MG/ML VIAL IM PRN (06:00)
[2016-09-01] MEDS: FOLIC ACID 1 MG TAB PO SCH (08:25)
[2016-09-01] MEDS: THIAMINE HCL 100 MG TAB PO SCH (08:25)
[2016-09-01] MEDS: NICOTINE 14 MG/24 HR PATCH T-DERMAL SCH (08:25)
[2016-09-01] MEDS: MULTIVITAMINS/MINERALS THERAPEUTIC TAB PO SCH (08:25)
[2016-09-01] MEDS: DOCUSATE SODIUM 50 MG/SENNA 8.6 MG TAB PO SCH ×2 (08:25→21:14)
[2016-09-01] MEDS: PANTOPRAZOLE SOD 40 MG DELAYED RELEASE TAB PO SCH (08:25)
[2016-09-01] MEDS: SODIUM CHLORIDE 0.9% FLUSH 5 ML FLUSH IVF SCH ×2 (08:27→21:00)
[2016-09-01] MEDS: REMOVE OLD PATCH T-DERMAL SCH (09:00)
--- NOTE | 2016-09-01 12:13 | HHI.PR ---
Subjective Remarks Follow up left cerebellar mass 09/01/16-patient seen and examined, complained of intermittent headache however denies any visual change. Objective Vitals Vital Signs Date Time Temp Pulse Resp B/P Pulse Ox O2 Delivery O2 Flow Rate FiO2 09/01/16 08:39 Room Air 09/01/16 08:35 96.3 66 20 116/75 96 09/01/16 03:29 96.7 71 20 122/76 99 09/01/16 03:16 74 22 112/79 96 09/01/16 00:00 97.2 82 24 91/64 95 08/31/16 21:35 16 08/31/16 20:00 97.8 87 22 111/59 99 08/31/16 19:45 Room Air 08/31/16 16:00 97.9 76 20 106/68 97 08/31/16 16:00 76 I/O 08/31/16 08/31/16 08/31/16 09/01/16 09/01/16 09/01/16 07:00 15:00 23:00 07:00 15:00 23:00 Intake Total 1060 ml 347 ml 237 ml 918 ml Output Total 0 ml 950 ml Balance 1060 ml 347 ml -713 ml 918 ml Intake Oral 500 ml 50 ml IV Total 560 ml 297 ml 237 ml 918 ml Output Urine Total 950 ml Stool Total 0 ml # Voids 3 6 # Bowel Movements 0 0 Result Diagram: 08/31/16 0358 08/31/16 0358 Imaging Last Impressions Chest CT 08/31/16599 Signed Impressions: Service Date/Time: Wednesday, August 31, 2016 08:10 - CONCLUSION: Normal examination. Jose Carlos Canales MD Abdomen/Pelvis CT 08/31/16 06 Signed Impressions: Service Date/Time: Wednesday, August 31, 2016 08:10 - CONCLUSION: Lobulated uterus raises the possibility of multiple leiomyoma. Outpatient ultrasound of the uterus may be helpful to better characterize these lesions. No evidence of adenopathy, mass, or etiology for metastatic disease is identified. Jose Carlos Canales MD Ribs X-Ray 08/30/16 1419 Signed Impressions: Service Date/Time: Tuesday, August 30, 2016 15:39 - CONCLUSION: Negative left rib series. Dani Silva MD Head CT 08/30/16 1416 Signed Impressions: Service Date/Time: Tuesday, August 30, 2016 14:33 - CONCLUSION: There is a large hemorrhagic mass involving the corpus callosum measuring 4.1 x 3.1 cm surrounded by vasogenic edema. These findings are highly suspicious for neoplastic disease. Recommend MRI of the brain with and without contrast for further evaluation. Aleksander Sanabria MD Hand X-Ray 08/30/16 1416 Signed Impressions: Service Date/Time: Tuesday, August 30, 2016 15:41 - CONCLUSION: 1. The metacarpal bones are intact. 2. Calcifications adjacent to the medial aspect of the 1st digit MCP joint of uncertain significance, could represent avulsion injury. Recommend correlation clinically sent for point tenderness in this area. Dani Silva MD Wrist X-Ray 08/30/16 0000 Signed Impressions: Service Date/Time: Tuesday, August 30, 2016 15:42 - CONCLUSION: No navicular fracture seen. Dani Silva MD Neck CTA 08/30/16 0000 Signed Impressions: Service Date/Time: Tuesday, August 30, 2016 18:26 - CONCLUSION: Negative for hemodynamically significant stenosis. Jayme Beauchamp MD FACR Head CTA 08/30/16 0000 Signed Impressions: Service Date/Time: Tuesday, August 30, 2016 18:26 - CONCLUSION: There is no aneurysm. Jayem Beauchamp MD FACR Brain MRI 08/30/16 0000 Signed Impressions: Service Date/Time: Tuesday, August 30, 2016 16:59 - CONCLUSION: Glioma versus glioblastoma, glioblastoma is favored involving the genu of the corpus callosum. The area is associated with hemorrhage and intense enhancement. Jayme Beauchamp MD FACR Objective Remarks GENERAL: NAD SKIN: Warm and dry. HEAD: Normocephalic. EYES: No scleral icterus. No injection or drainage. NECK: Supple, trachea midline. No JVD or lymphadenopathy. CARDIOVASCULAR: Regular rate and rhythm without murmurs, gallops, or rubs. RESPIRATORY: Breath sounds equal bilaterally. No accessory muscle use. GASTROINTESTINAL: Abdomen soft, non-tender, nondistended. MUSCULOSKELETAL: No cyanosis, or edema. BACK: Nontender without obvious deformity. No CVA tenderness. A/P Problem List: (1) Intracranial space-occupying lesion found on diagnostic imaging of central nervous system ICD Code: R90.0 Status: Acute (2) Intracranial hemorrhage ICD Code: I62.9 Status: Acute Assessment and Plan 51-year-old female with 1. 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 Alcohol abuse Continue KIRSTY young protocol GI prophylaxis PPI Sukhdev Jenkins MD Sep 01, 2016 12:13
[2016-09-01] MEDS: SODIUM CHLOR 0.9% 1000 ML INJ 1,000 ML IV SCH (13:12)
[2016-09-01] MEDS ORDERED: oxyCODONE/ACETAMINOPHEN 5 MG/325 MG TAB PO ONE (13:45)
--- NOTE | 2016-09-01 13:46 | HHI.NSPN ---
History Chief Complaint: no complaints Interval History Patient admitted 08/30/16 through the emergency room where she presented with complaint of left chest and arm pain following a fall on August 27. Initial CT imaging revealed a hemorrhagic mass in the region of the corpus callosum, bilateral posterior medial frontal lobes, confirmed with follow-up MRI imaging. 08/31/16: Remained stable, and no headache blurred vision diplopia speech difficulty weakness or numbness in the extremities. Exam Results Vital Signs Date Time Temp Pulse Resp B/P Pulse Ox O2 Delivery O2 Flow Rate FiO2 09/01/16 12:33 97.2 75 20 122/67 99 09/01/16 08:39 Room Air Intake and Output 08/31/16 08/31/16 09/01/16 08:00 16:00 00:00 Intake Total 1060 ml 347 ml 237 ml Output Total 0 ml 950 ml Balance 1060 ml 347 ml -713 ml Physical Examination Respirations clear and regular Heart rate regular Abdomen soft nontender No extremity edema The significant neck pain Mild low back tenderness Awake alert oriented conversant and appropriate May have slight speech hesitancy Seems to have reasonable judgment and insight Recent and remote memory are intact Extraocular movements fascial sensorimotor testing intact Sensation intact all extremities to light touch Strength normal major flexion and extension groups all extremities Medical Decision Making Impression and Plan Impression: 1. Large hemorrhagic mass in the region of the corpus callosum extending to the posterior medial bilateral frontal lobe. CT scan chest abdomen and pelvis negative for primary lesion. 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 Patient tentatively scheduled for stereotactic brain biopsy on 09/02/16. The procedure, indications, risks, possible complications all fully discussed with the patient including risk of brain damage, vascular injury and bleeding, infection, failure to obtain diagnosis. She appears to understand all the above and wishes to proceed with stereotactic brain biopsy tomorrow. She appears stable at the present time for transferred to regular floor. Continuing diet. Out of bed as tolerated Keenan Vanegas MD Sep 01, 2016 13:46
[2016-09-02] VITALS (7 sets, daily range): BP systolic 106–153; BP diastolic 63–86; PULSE 66–92; RESP 18–26; TEMP 96.5–98.9; O2SAT 95–98
[2016-09-02] MEDS: MORPHINE SULFATE 4 MG/ML INJ IV PRN ×2 (01:32→20:08)
[2016-09-02] MEDS: SODIUM CHLOR 0.9% 1000 ML INJ 1,000 ML IV SCH ×2 (03:30→17:48)
[2016-09-02] MEDS: CHLORHEXIDINE GLUCONATE 2 % 1 PACK (2 CLOTHS) TOP SCH (04:00)
[2016-09-02] MEDS ORDERED: GENTAMICIN SULFATE 80 MG/2 ML VIAL ONE (07:33)
[2016-09-02] MEDS ORDERED: THROMBIN (TOPICAL) 5,000 UNIT VIAL ONE ×2 (07:33→07:34)
[2016-09-02] MEDS ORDERED: GELFOAM SIZE 100 ONE (07:33)
[2016-09-02] MEDS ORDERED: LIDOCAINE 1%/EPINEPHrine 1:100,000 SOLN 20 ML VIAL ONE (07:36)
[2016-09-02] MEDS: DOCUSATE SODIUM 50 MG/SENNA 8.6 MG TAB PO SCH ×2 (09:00→20:07)
[2016-09-02] MEDS: REMOVE OLD PATCH T-DERMAL SCH (09:00)
[2016-09-02] MEDS: SODIUM CHLORIDE 0.9% FLUSH 5 ML FLUSH IVF SCH ×2 (09:00→20:09)
[2016-09-02] MEDS: NICOTINE 14 MG/24 HR PATCH T-DERMAL SCH (09:00)
[2016-09-02] MEDS: THIAMINE HCL 100 MG TAB PO SCH (09:00)
[2016-09-02] MEDS: PANTOPRAZOLE SOD 40 MG DELAYED RELEASE TAB PO SCH (09:00)
[2016-09-02] MEDS: MULTIVITAMINS/MINERALS THERAPEUTIC TAB PO SCH (09:00)
[2016-09-02] MEDS: FOLIC ACID 1 MG TAB PO SCH (09:00)
[2016-09-02] MEDS ORDERED: CLINDAMYCIN PHOS 600 MG/4 ML VIAL ONE (09:29)
[2016-09-02] MEDS ORDERED: MIDAZOLAM HCL 2 MG/2 ML VIAL ONE (09:36)
[2016-09-02] MEDS ORDERED: DEXAMETHASONE SOD PHOS 4 MG/ML VIAL ONE (09:36)
[2016-09-02] MEDS ORDERED: FAMOTIDINE 20 MG/2 ML VIAL ONE (09:36)
[2016-09-02] MEDS ORDERED: PROPOFOL 200 MG/20 ML AMP IV ONE (12:00)
[2016-09-02] MEDS ORDERED: PHENYLEPH/NS 1000 MCG/10 ML SYR IV ONE (12:00)
[2016-09-02] MEDS ORDERED: LACTATED RINGER'S 1000 ML INJ 1,000 ML IV ONE (12:00)
[2016-09-02] MEDS ORDERED: fentaNYL CITRATE 250 MCG/5 ML AMP ONE (12:12)
[2016-09-02] MEDS ORDERED: SUGAMMADEX SODIUM 200 MG/2 ML VIAL IV PUSH ONE ×2 (12:15)
--- NOTE | 2016-09-02 12:28 | PD.OP ---
Operative Report Date of Surgery: Sep 02, 2016 Preoperative Diagnosis: (1) Intracranial space-occupying lesion found on diagnostic imaging of central nervous system (2) Intracranial hemorrhage Frontal interhemispheric hemorrhagic brain lesion Postoperative Diagnosis: (1) Intracranial space-occupying lesion found on diagnostic imaging of central nervous system (2) Intracranial hemorrhage Frontal interhemispheric hemorrhagic brain lesion Procedure: Right frontal jessy hole for stereotactic brain biopsy Anesthesia: General Surgeon: Keenan Vanegas [employer] Operator(s): Suzy Escalona Operation and Findings: The patient was brought into the operating room and general endotracheal anesthesia induced without difficulty. Lines were established per Anesthesia SCDs were placed. The patient was placed in supine position on the 3080 table and all extremities appropriately padded The head was secured to the operating room table in neutral position with the 3 point fixation device and the Davis adapter. The [facility] stereotactic system was registered using the laser facial registration system and landmarks verified. The head was shaved with clippers and sterilely prepped and draped. Appropriate timeout procedure was performed with all personnel present and in agreement The fiducial for the [facility] stereotactic system was reattached to the 3-point fixation device along with the benjamin for the stereotactic pre-registered biopsy needle. The [facility] system was used to plan the approach to the lesion and the initial incision site. The initial incision was made over the right frontal region approximately 1 cm anterior to the coronal suture which was infiltrated with 1% Xylocaine with epinephrine prior to incision. The incision was carried sharply down to the cranium. The firewall security engineer was used to place a single bur hole and the dura was incised in a cruciate fashion and the edges coagulated with the bipolar forceps The [facility] preregistered biopsy needle and the integrated needle guide and fiducial were used to determine the initial trajectory to the lesion. The preregistered biopsy needle was then advanced into the central portion of the lesion. Great care was taken to plan a trajectory and biopsy point away from any major vascular structures. Biopsy specimens were obtained from the central portion of the primary interhemispheric frontal enhancing lesion as determined on MRI imaging, as well as additional biopsy from the more peripheral right frontal portion of the lesion. All of the biopsy specimens had significant amount of hemorrhage within the tissue. However only a small amount of bleeding was noted at the time of the biopsy. Specimens were sent for permanent section pathology. Biopsy needle was withdrawn and the region was well irrigated with physiosol irrigation. There was only minimal bleeding encountered during the procedure. The incision was closed with 3-0 Vicryl for the galea and subcutaneous closure with 4-0 nylon running skin closure A sterile Primapore dressing was placed The patient was removed from the 3-point head fixation device, taken to recovery room in stable condition All counts were correct at the end of the case Estimated blood loss was 5 cc. Specimen was sent for pathology permanent section. Due to the significant vascular nature of the lesion, it was elected to proceed immediately to the CT scanning suite immediately following the biopsy with the patient still intubated and under anesthesia in order to assess for any significant new hemorrhage. The underside accompanied the patient along with general anesthesia to the CT scanning suite. The CT scan images were reviewed by the undersigned at the time of completion compared to the preoperative study without definite significant changes noted. The patient was considered stable to proceed to the recovery room where she was then extubated and noted to be in stable neurologic condition. EBL 5cc Keenan Vanegas MD Sep 02, 2016 12:27
--- NOTE | 2016-09-02 12:35 | RADRPT ---
EXAM DATE/TIME: 09/02/2016 12:17 [place] COMPARISON: CT BRAIN W/O CONTRAST, August 30, 2016, 14:33. INDICATIONS : Post op tumor RADIATION DOSE: 30.39 CTDIvol (mGy) MEDICAL HISTORY : Chronic obstructive pulmonary disease. Brain tumor SURGICAL HISTORY : Brain tumor ENCOUNTER: Initial ACUITY: 1 day PAIN SCALE: Non-responsive LOCATION: cranial TECHNIQUE: Multiple contiguous axial images were obtained of the head. Using automated exposure control and adj ustment of the mA and/or kV according to patient size, radiation dose was kept as low as reasonably a chievable to obtain optimal diagnostic quality images. DICOM format image data is available electro nically for review and comparison. FINDINGS: Postoperative extra-axial gas is present in the right frontal lobe. The mass epicentered in the region of the anterior falx measuring almost 4 cm in size has not significantly changed except for so me gas bubbles within it related to biopsy. The edema surrounding the mass particularly in the right frontal lobe has not changed The rest of the examination has not significantly changed. CONCLUSION: Post craniotomy changes and otherwise no significant change. Eliud Whittaker MD on September 02, 2016 at 12:28 Board Certified Radiologist. This report was verified electronically.
--- NOTE | 2016-09-02 13:13 | EKG ---
Date Performed: 09/02/2016 Time Performed: 09:35:56 PTAGE: 51 years EKG: Sinus rhythm WITH OCCASIONAL VENTRICULAR PREMATURE COMPLEXES BORDERLINE ECG NO PREVIOUS TRACING DOCTOR: Addi Vasquez Interpretating Date/Time 09/02/2016 13:11:16
[2016-09-02] MEDS ORDERED: hydrALAZINE HCL 20 MG/ML VIAL IV PUSH PRN (13:15)
[2016-09-02] MEDS ORDERED: *morphine SULFATE 8 MG/ML PERIprocedure ONLY ONE ×2 (13:18→14:14)
[2016-09-02] MEDS ORDERED: DO NOT ADM ANY ANTICOAGULANT DRUGS PRN (13:45)
--- NOTE | 2016-09-02 14:45 | HHI.PR ---
Subjective Remarks Follow up left cerebellar mass 09/01/16-patient seen and examined, complained of intermittent headache however denies any visual change. 09/02/16-patient seen and examined in PACU she status post Right frontal jessy hole for stereotactic brain biopsy Objective Vitals Vital Signs Date Time Temp Pulse Resp B/P Pulse Ox O2 Delivery O2 Flow Rate FiO2 09/02/16 09:25 Room Air 09/02/16 08:00 97.8 72 18 130/73 96 09/02/16 06:06 97.0 79 20 153/86 96 09/02/16 01:37 18 09/02/16 00:00 96.5 74 20 126/67 95 09/01/16 20:00 96.2 71 20 122/64 93 09/01/16 16:28 97.0 66 20 117/71 98 I/O 09/01/16 09/01/16 09/01/16 09/02/16 09/02/16 09/02/16 07:00 15:00 23:00 07:00 15:00 23:00 Intake Total 918 ml 480 ml Balance 918 ml 480 ml Intake Oral 480 ml IV Total 918 ml # Voids 4 4 # Bowel Movements 1 Result Diagram: 08/31/16 0358 08/31/16 0358 Objective Remarks GENERAL: NAD SKIN: Warm and dry. HEAD: Normocephalic. EYES: No scleral icterus. No injection or drainage. NECK: Supple, trachea midline. No JVD or lymphadenopathy. CARDIOVASCULAR: Regular rate and rhythm without murmurs, gallops, or rubs. RESPIRATORY: Breath sounds equal bilaterally. No accessory muscle use. GASTROINTESTINAL: Abdomen soft, non-tender, nondistended. MUSCULOSKELETAL: No cyanosis, or edema. BACK: Nontender without obvious deformity. No CVA tenderness. Procedures Right frontal jessy hole for stereotactic brain biopsy 09/02/16 A/P Problem List: (1) Intracranial space-occupying lesion found on diagnostic imaging of central nervous system ICD Code: R90.0 Status: Acute (2) Intracranial hemorrhage ICD Code: I62.9 Status: Acute Assessment and Plan 51-year-old female with 1. 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 Alcohol abuse Continue rally pack, CIWA protocol GI prophylaxis PPI Sukhdev Jenkins MD Sep 02, 2016 14:44
[2016-09-02 18:30] LABS: ANION GAP 7 MEQ/L (5-15); BICARBONATE 29.5 MEQ/L (21.0-32.0); BLOOD UREA NITROGEN 4 MG/DL (7-18); CHLORIDE 101 MEQ/L (98-107); GLOMERULAR FILTRATION RATE 101 ML/MIN (>89); POTASSIUM 3.9 MEQ/L (3.5-5.1); SODIUM (NA) 137 MEQ/L (136-145)
[2016-09-03] VITALS (12 sets, daily range): BP systolic 104–150; BP diastolic 60–81; PULSE 65–100; RESP 16–22; TEMP 96.5–99.3; O2SAT 94–100
[2016-09-03] MEDS: CHLORHEXIDINE GLUCONATE 2 % 1 PACK (2 CLOTHS) TOP SCH (04:00)
[2016-09-03 04:56] LABS: BICARBONATE 28.9 MEQ/L (21.0-32.0); POTASSIUM 3.3 MEQ/L (3.5-5.1)
[2016-09-03 05:24] LABS: AUTOMATED NEUTROPHIL # 5.1 TH/MM3 (1.8-7.7); BASOPHIL % 0.4 % (0.0-2.0); EOSINOPHIL % 0.4 % (0.0-4.0); HEMATOCRIT 34.1 % (35.0-46.0); HEMO FLAGS DIFF FINAL; LYMPHOCYTE # 1.3 TH/MM3 (1.0-4.8); MEAN CELL VOLUME 94.5 FL (80.0-100.0); MEAN CORPUSCULAR HEMOGLOBIN 32.9 PG (27.0-34.0); MEAN CORPUSCULAR HGB CONC 34.8 % (32.0-36.0); MONO % 8.5 % (0.0-8.0); NEUT % 71.7 % (16.0-70.0); PLATELET COUNT 188 TH/MM3 (150-450); RED CELL DISTRIBUTION WIDTH 12.6 % (11.6-17.2); WHITE BLOOD COUNT 7.1 TH/MM3 (4.0-11.0)
[2016-09-03] MEDS: SODIUM CHLOR 0.9% 1000 ML INJ 1,000 ML IV SCH (08:06)
[2016-09-03] MEDS: SODIUM CHLORIDE 0.9% FLUSH 5 ML FLUSH IVF SCH ×2 (08:12→21:00)
[2016-09-03] MEDS: MORPHINE SULFATE 4 MG/ML INJ IV PRN (08:26)
[2016-09-03] MEDS: PROMETHAZINE INJ 25 MG/ML VIAL IM PRN (08:32)
[2016-09-03] MEDS: REMOVE OLD PATCH T-DERMAL SCH (08:32)
[2016-09-03] MEDS: NICOTINE 14 MG/24 HR PATCH T-DERMAL SCH (08:32)
[2016-09-03] MEDS: MULTIVITAMINS/MINERALS THERAPEUTIC TAB PO SCH (08:33)
[2016-09-03] MEDS: PANTOPRAZOLE SOD 40 MG DELAYED RELEASE TAB PO SCH (08:33)
[2016-09-03] MEDS: FOLIC ACID 1 MG TAB PO SCH (08:33)
[2016-09-03] MEDS: DOCUSATE SODIUM 50 MG/SENNA 8.6 MG TAB PO SCH ×2 (08:33→21:41)
[2016-09-03] MEDS: THIAMINE HCL 100 MG TAB PO SCH (08:33)
--- NOTE | 2016-09-03 09:23 | HHI.NSPN ---
(Delgado Gonzalez) History Chief Complaint: No complaints (Delgado Gonzalez) Interval History 08/30: The patient is a pleasant 51-year-old lady who states that she was rather intoxicated on 27 August and recalls falling and probably striking her head. She does not really seem to recall any details. Since then she has had some pain and swelling over the left forehead and some pain in her left hand. She presented to the emergency room today primarily because of pain in her left rib cage and her left wrist. The course of her emergency room evaluation she has undergone a CT scan of the head which initially revealed a large hemorrhagic mass in the corpus callosum measuring approximately 3 x 4 cm with surrounding vasogenic edema primarily in the right frontal lobe. An MRI and a CT angiogram of the brain have also been subsequently performed. The patient denies any recent headaches. She gives a vague history of occasional migraine headaches. She denies any dizziness, blurred vision diplopia ,speech difficulty, significant memory loss, word finding difficulty, pain weakness and numbness in the upper or lower extremities or difficulty with ambulation or coordination. She indicates general fatigue and decreased appetite over the past few weeks but seems to indicate that this is not unusual for her. No fevers or chills. 08/31: Remained stable, and no headache blurred vision diplopia speech difficulty weakness or numbness in the extremities. 09/02: Stereotactic biopsy by Dr Vanegas, post-operatively transferred to [facility] for further monitoring. 09/03: The patient is doing well this morning when seen. She is sitting up in bed and ready to eat breakfast. She states she had some pain to the surgical site earlier relieved with morphine and nausea secondary to the morphine relieved with medication. She had no complaints when seen. (Delgado Gonzalez) System Review Comments Constitutional: Patient denies any fever or chills. HEENT: Patient with some pain to the surgical site earlier but relieved with morphine. She denies any visual or hearing difficulty. Respiratory: Patient denies any shortness of breath or productive cough. Cardiovascular: Patient denies any chest pain, palpitations or irregular heartbeat. Gastrointestinal: Patient did have some nausea earlier but resolved with medication. She denies any abdominal pain, vomiting or incontinence of stool. Genitourinary: Patient denies any incontinence of urine. Musculoskeletal: Patient complains of left wrist pain. Neurologic: Patient denies any headache, dizziness, numbness or tingling. ( Delgado Gonzalez) Exam Results Vital Signs Date Time Temp Pulse Resp B/P Pulse Ox O2 Delivery O2 Flow Rate FiO2 09/03/16 08:13 99.3 100 20 144/67 94 09/02/16 19:00 Room Air 09/02/16 13:15 3 Intake and Output 09/02/16 09/02/16 09/03/16 08:00 16:00 00:00 Intake Total 1575 ml 1123 ml Output Total 1005 ml Balance 570 ml 1123 ml (Delgado Gonzalez) Physical Examination GENERAL: Awake & alert, sitting up in bed, readily interacts, normal affect, no apparent distress. HEENT: Normocephalic, right frontal jessy hole w/intact steri-strips w/dried sanguinous drainage noted, no erythema, streaking or active drainage noted at site. Left forehead ecchymosis. NECK: Active ROM w/o any pain, no JVD, trachea midline. CARDIOVASCULAR: S1S2 w/RRR w/o M/G/R, no pedal edema. Monitor is sinus rhythm w/ o any evident ectopy noted. RESPIRATORY: CTAB w/o W/R/R, equal excursion, nonlaboured, on RA. GASTROINTESTINAL: Abdomen soft, nontender, positive bowel sounds. MUSCULOSKELETAL: ANAYA w/o difficulty. Left short arm splint in place. NEUROLOGICAL: AAOx3 Speech clear & appropriate Follows simple commands w/o difficulty CN II-XII grossly intact Sensation intact to light touch to all extremities Motor strength 5/5 to all major flexion & extension muscle groups (Delgado Gonzalez) Lab, Micro, Other Results Allergies Coded Allergies Type Severity Reaction Last Updated Verified Penicillin Allergy Severe Nausea/Vomiting 12/31/13 Yes Recent Impressions Head CT 09/02/16 1130 Signed Impressions: Service Date/Time: Friday, September 02, 2016 12:17 - CONCLUSION: Post craniotomy changes and otherwise no significant change. K. Amado Shamlou, MD 06:00 18:00 06:00 18:00 06:00 18:00 Intake Total 1155 ml 480 ml 1575 ml 2540 ml Output Total 950 ml 1005 ml Balance 205 ml 480 ml 570 ml 2540 ml Intake Oral 480 ml 1460 ml IV Total 1155 ml 175 ml 1080 ml Other 1400 ml Output Urine Total 950 ml 1000 ml Estimated Blood Loss 5 ml # Voids 4 4 11 # Bowel Movements 0 1 0 Laboratory Tests Test 09/02/16 09/03/16 17:48 03:42 Sodium Level 137 MEQ/L 138 MEQ/L Potassium Level 3.9 MEQ/L 3.3 MEQ/L Chloride Level 101 MEQ/L 103 MEQ/L Carbon Dioxide Level 29.5 MEQ/L 28.9 MEQ/L Anion Gap 7 MEQ/L 6 MEQ/L Blood Urea Nitrogen 4 MG/DL 4 MG/DL Creatinine 0.62 MG/DL 0.57 MG/DL Estimat Glomerular Filtration 101 ML/MIN 111 ML/MIN Rate Random Glucose 156 MG/DL 188 MG/DL Calcium Level 9.3 MG/DL 8.6 MG/DL White Blood Count 7.1 TH/MM3 Red Blood Count 3.60 MIL/MM3 Hemoglobin 11.9 GM/DL Hematocrit 34.1 % Mean Corpuscular Volume 94.5 FL Mean Corpuscular Hemoglobin 32.9 PG Mean Corpuscular Hemoglobin 34.8 % Concent Red Cell Distribution Width 12.6 % Platelet Count 188 TH/MM3 Mean Platelet Volume 9.1 FL Neutrophils (%) (Auto) 71.7 % Lymphocytes (%) (Auto) 19.0 % Monocytes (%) (Auto) 8.5 % Eosinophils (%) (Auto) 0.4 % Basophils (%) (Auto) 0.4 % Neutrophils # (Auto) 5.1 TH/MM3 Lymphocytes # (Auto) 1.3 TH/MM3 Monocytes # (Auto) 0.6 TH/MM3 Eosinophils # (Auto) 0.0 TH/MM3 Basophils # (Auto) 0.0 TH/MM3 CBC Comment DIFF FINAL Differential Comment Vital Signs Date Time Temp Pulse Resp B/P Pulse Ox O2 Delivery O2 Flow Rate FiO2 09/03/16 08:13 99.3 100 20 144/67 94 09/03/16 06:00 65 09/03/16 04:00 70 09/03/16 04:00 98.1 68 16 112/68 96 09/03/16 02:00 75 09/03/16 00:00 98.2 73 22 104/60 96 09/03/16 00:00 73 09/02/16 22:00 71 09/02/16 20:00 98.9 88 19 106/63 95 09/02/16 20:00 92 09/02/16 19:00 95 Room Air 09/02/16 18:00 80 09/02/16 16:00 98.1 66 26 145/86 98 09/02/16 16:00 66 09/02/16 14:10 97.8 68 16 131/68 97 Room Air 09/02/16 14:00 68 16 102/66 97 Room Air 09/02/16 13:30 63 16 120/69 100 Room Air 09/02/16 13:15 64 15 122/73 100 Nasal Cannula 3 09/02/16 13:00 67 16 116/75 100 Nasal Cannula 3 09/02/16 12:45 63 17 131/73 100 Nasal Cannula 3 09/02/16 12:30 61 15 126/65 100 Nasal Cannula 3 09/02/16 12:20 97.5 61 14 124/79 100 Nasal Cannula 3 09/02/16 09:25 Room Air 09/02/16 08:00 97.8 72 18 130/73 96 09/02/16 06:06 97.0 79 20 153/86 96 09/02/16 01:37 18 09/02/16 00:00 96.5 74 20 126/67 95 09/01/16 20:00 96.2 71 20 122/64 93 09/01/16 16:28 97.0 66 20 117/71 98 09/01/16 12:33 97.2 75 20 122/67 99 09/01/16 08:39 Room Air 09/01/16 08:35 96.3 66 20 116/75 96 09/01/16 03:29 96.7 71 20 122/76 99 09/01/16 03:16 74 22 112/79 96 09/01/16 00:00 97.2 82 24 91/64 95 08/31/16 20:00 97.8 87 22 111/59 99 08/31/16 19:45 Room Air 08/31/16 16:00 97.9 76 20 106/68 97 08/31/16 16:00 76 08/31/16 12:00 97.8 74 20 118/67 98 (eDlgado Gonzalez) Medical Decision Making Impression and Plan Impression: 1. Large hemorrhagic mass arising in the region of the corpus callosum with hemorrhage extending to the bilateral posterior frontal lobe with compression of the frontal horn of the right and left lateral ventricle. No intraventricular hemorrhage. 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 2. History of asthma-COPD CT chest abdomen and pelvis negative for primary lesion. 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 Pertinent documentation and study results have been reviewed by the undersigned. I have personally developed the treatment plan and performed medical decision making. Agree with findings, exam, and treatment plan as noted above. Extremities neurologically intact following biopsy. Plan transfer regular room. Probable discharge home on 09/04/16 if remains neurologically stable. She will need office follow-up next week to discuss biopsy results. At the request of the patient, her father was called and the initial findings discussed. I advised him that the lesion was very hemorrhagic, difficult to obtain a good biopsy specimen. There is a chance of requiring an additional and possibly open biopsy depending on the pathology results. I answered all his questions. (Keenan Vanegas MD) Delgado Gonzalez Sep 03, 2016 09:23 Keenan Vanegas MD Sep 03, 2016 12:36
--- NOTE | 2016-09-03 10:37 | HHI.PR ---
Subjective Remarks Follow up left cerebellar mass 09/01/16-patient seen and examined, complained of intermittent headache however denies any visual change. 09/02/16-patient seen and examined in PACU she status post Right frontal jessy hole for stereotactic brain biopsy 09/03/16-patient seen and examined, denies any headache, visual changes. No head pain. Having breakfast without any complication of nausea or vomiting Objective Vitals Vital Signs Date Time Temp Pulse Resp B/P Pulse Ox O2 Delivery O2 Flow Rate FiO2 09/03/16 08:13 99.3 100 20 144/67 94 09/03/16 06:00 65 09/03/16 04:00 70 09/03/16 04:00 98.1 68 16 112/68 96 09/03/16 02:00 75 09/03/16 00:00 98.2 73 22 104/60 96 09/03/16 00:00 73 09/02/16 22:00 71 09/02/16 20:00 98.9 88 19 106/63 95 09/02/16 20:00 92 09/02/16 19:00 95 Room Air 09/02/16 18:00 80 09/02/16 16:00 98.1 66 26 145/86 98 09/02/16 16:00 66 09/02/16 14:10 97.8 68 16 131/68 97 Room Air 09/02/16 14:00 68 16 102/66 97 Room Air 09/02/16 13:30 63 16 120/69 100 Room Air 09/02/16 13:15 64 15 122/73 100 Nasal Cannula 3 09/02/16 13:00 67 16 116/75 100 Nasal Cannula 3 09/02/16 12:45 63 17 131/73 100 Nasal Cannula 3 09/02/16 12:30 61 15 126/65 100 Nasal Cannula 3 09/02/16 12:20 97.5 61 14 124/79 100 Nasal Cannula 3 I/O 09/02/16 09/02/16 09/02/16 09/03/16 09/03/16 09/03/16 07:00 15:00 23:00 07:00 15:00 23:00 Intake Total 1575 ml 1123 ml 1417 ml Output Total 1005 ml Balance 570 ml 1123 ml 1417 ml Intake Oral 620 ml 840 ml IV Total 175 ml 503 ml 577 ml Other 1400 ml Output Urine Total 1000 ml Estimated Blood Loss 5 ml # Voids 4 7 4 # Bowel Movements 0 0 Result Diagram: 09/03/16 0342 09/03/16 0342 Objective Remarks GENERAL: NAD SKIN: Warm and dry. HEAD: Normocephalic.bandage over site EYES: No scleral icterus. No injection or drainage. NECK: Supple, trachea midline. No JVD or lymphadenopathy. CARDIOVASCULAR: Regular rate and rhythm without murmurs, gallops, or rubs. RESPIRATORY: Breath sounds equal bilaterally. No accessory muscle use. GASTROINTESTINAL: Abdomen soft, non-tender, nondistended. MUSCULOSKELETAL: No cyanosis, or edema. BACK: Nontender without obvious deformity. No CVA tenderness. Procedures Right frontal jessy hole for stereotactic brain biopsy 09/02/16 A/P Problem List: (1) Intracranial space-occupying lesion found on diagnostic imaging of central nervous system ICD Code: R90.0 Status: Acute (2) Intracranial hemorrhage ICD Code: I62.9 Status: Acute Assessment and Plan 51-year-old female with 1. 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 Alcohol abuse Continue rally KIRSTY acevedo protocol 3. Hypokalemia Give potassium 60 mEq 1 now. GI prophylaxis PPI Transfer to med/surg yeh Sukhdev Jenkins MD Sep 03, 2016 10:37
[2016-09-03] MEDS ORDERED: POTASSIUM CHLORIDE 10 MEQ CONTROLLED RELEASE TAB PO ONE (10:45)
[2016-09-03 18:50] LABS: HEMOGLOBIN A1a 0.9 %; HEMOGLOBIN A1b 1.4 %; HEMOGLOBIN Ao 86.8 %; HEMOGLOBIN P3 3.4 %
[2016-09-03] MEDS ORDERED: ENALAPRILAT 2.5 MG/2 ML VIAL IV PUSH PRN (19:15)
[2016-09-03] MEDS ORDERED: cloNIDine HCL 0.1 MG TAB PO PRN (19:15)
[2016-09-04 00:20] VITALS: BP 131/79; PULSE 69; RESP 16; TEMP 97.1; O2SAT 96
[2016-09-04 00:41] VITALS: PULSE 70
[2016-09-04] MEDS: CHLORHEXIDINE GLUCONATE 2 % 1 PACK (2 CLOTHS) TOP SCH (01:44)
[2016-09-04 04:57] VITALS: BP 122/68; PULSE 69; RESP 17; TEMP 97; O2SAT 96
[2016-09-04] MEDS ORDERED: MORPHINE SULFATE 8 MG/ML INJ IV PUSH PRN (05:15)
[2016-09-04 08:45] VITALS: BP 136/81; PULSE 64; RESP 17; TEMP 97.6; O2SAT 96
[2016-09-04] MEDS: SODIUM CHLORIDE 0.9% FLUSH 5 ML FLUSH IVF SCH (09:00)
[2016-09-04] MEDS: REMOVE OLD PATCH T-DERMAL SCH (09:00)
[2016-09-04] MEDS: FOLIC ACID 1 MG TAB PO SCH (09:07)
[2016-09-04] MEDS: MULTIVITAMINS/MINERALS THERAPEUTIC TAB PO SCH (09:07)
[2016-09-04] MEDS: NICOTINE 14 MG/24 HR PATCH T-DERMAL SCH (09:07)
[2016-09-04] MEDS: THIAMINE HCL 100 MG TAB PO SCH (09:07)
[2016-09-04] MEDS: DOCUSATE SODIUM 50 MG/SENNA 8.6 MG TAB PO SCH (09:07)
[2016-09-04] MEDS: PANTOPRAZOLE SOD 40 MG DELAYED RELEASE TAB PO SCH (09:07)
--- NOTE | 2016-09-04 11:54 | HHI.PR ---
Subjective Remarks Follow up left cerebellar mass 09/01/16-patient seen and examined, complained of intermittent headache however denies any visual change. 09/02/16-patient seen and examined in PACU she status post Right frontal jessy hole for stereotactic brain biopsy 09/03/16-patient seen and examined, denies any headache, visual changes. No head pain. Having breakfast without any complication of nausea or vomiting 09/04/16-patient seen and examined, has no complaint of headaches. States she is scare of what the biopsy might possibly be. Otherwise stable Objective Vitals Vital Signs Date Time Temp Pulse Resp B/P Pulse Ox O2 Delivery O2 Flow Rate FiO2 09/04/16 08:45 97.6 64 17 136/81 96 09/04/16 04:57 97.0 69 17 122/68 96 09/04/16 00:41 70 09/04/16 00:20 97.1 69 16 131/79 96 09/03/16 20:02 97.2 76 16 131/81 98 09/03/16 17:44 96.5 78 17 150/75 99 09/03/16 16:00 72 09/03/16 16:00 98.1 72 18 114/72 100 09/03/16 14:00 75 09/03/16 12:00 69 09/03/16 12:00 98.1 69 21 121/79 100 I/O 09/03/16 09/03/16 09/03/16 09/04/16 09/04/16 09/04/16 07:00 15:00 23:00 07:00 15:00 23:00 Intake Total 1417 ml 2035 ml 480 ml Balance 1417 ml 2035 ml 480 ml Intake Oral 840 ml 1440 ml 480 ml IV Total 577 ml 595 ml # Voids 4 6 8 # Bowel Movements 0 0 1 Result Diagram: 09/03/16 0342 09/03/16 034 Objective Remarks GENERAL: NAD SKIN: Warm and dry. HEAD: Normocephalic.bandage over site EYES: No scleral icterus. No injection or drainage. NECK: Supple, trachea midline. No JVD or lymphadenopathy. CARDIOVASCULAR: Regular rate and rhythm without murmurs, gallops, or rubs. RESPIRATORY: Breath sounds equal bilaterally. No accessory muscle use. GASTROINTESTINAL: Abdomen soft, non-tender, nondistended. MUSCULOSKELETAL: No cyanosis, or edema. BACK: Nontender without obvious deformity. No CVA tenderness. Procedures Right frontal jessy hole for stereotactic brain biopsy 09/02/16 A/P Problem List: (1) Intracranial space-occupying lesion found on diagnostic imaging of central nervous system ICD Code: R90.0 Status: Acute (2) Intracranial hemorrhage ICD Code: I62.9 Status: Acute Assessment and Plan 51-year-old female with 1. 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 Alcohol abuse Continue KIRSTY young protocol 3. Hypokalemia Resolved status post replacement GI prophylaxis PPI Sukhdev Jenkins MD Sep 04, 2016 11:54
[2016-09-04] MEDS ORDERED: GNP100TA3 PO (11:55)
--- NOTE | 2016-09-04 11:58 | HHI.DS ---
Discharge Summary Admission Date Aug 30, 2016 at 18:07 Discharge Date: Sep 04, 2016 Admitting Diagnosis intracranial hemorrhage, left rib contusion, left wrist contusion (1) Intracranial space-occupying lesion found on diagnostic imaging of central nervous system ICD Code: R90.0 Diagnosis: Principal (2) Intracranial hemorrhage ICD Code: I62.9 Diagnosis: Principal Procedures Right frontal jessy hole for stereotactic brain biopsy 09/02/16 Brief History - From Admission 51 y/o woman fell 3 days ago while intoxicated and is amnesic for the cause of the fall. Seen today due to head ache and left chest and hand pain. No nausea, vomiting, seizures, black-outs, fainting. CT Head reveals a large midline mass with hemorrhage. MRI ordered for further clarification. Normotensive. X-rays of left hand, wrist, ribs are negative for injury. CBC/BMP: 09/03/16 0342 09/03/16 0342 Significant Findings Laboratory Tests Test 09/02/16 09/03/16 17:48 03:42 Blood Urea Nitrogen 4 MG/DL (7-18) 4 MG/DL (7-18) Random Glucose 156 MG/DL 188 MG/DL (74-106) (74-106) Red Blood Count 3.60 MIL/MM3 (4.00-5.30) Hematocrit 34.1 % (35.0-46.0) Neutrophils (%) (Auto) 71.7 % (16.0-70.0) Monocytes (%) (Auto) 8.5 % (0.0-8.0) Potassium Level 3.3 MEQ/L (3.5-5.1) PE at Discharge GENERAL: NAD SKIN: Warm and dry. HEAD: Normocephalic.bandage over site EYES: No scleral icterus. No injection or drainage. NECK: Supple, trachea midline. No JVD or lymphadenopathy. CARDIOVASCULAR: Regular rate and rhythm without murmurs, gallops, or rubs. RESPIRATORY: Breath sounds equal bilaterally. No accessory muscle use. GASTROINTESTINAL: Abdomen soft, non-tender, nondistended. MUSCULOSKELETAL: No cyanosis, or edema. BACK: Nontender without obvious deformity. No CVA tenderness. Hospital Course Patient was admitted and found to have a cerebral mass which neurosurgery was consulted for which neurosurgery was consulted and she underwent Right frontal jessy hole for stereotactic brain biopsy 09/02/16 pending pathology report. She was started on rally pack, CIWA protocol secondary to a history of alcohol abuse. All electrolyte abnormalities were corrected accordingly. Patient will follow with PCP as well as neurosurgery for pathology report. Pt Condition on Discharge: Stable Discharge Disposition: Discharge Home Discharge Time: <= 30 minutes Discharge Instructions DIET: Follow Instructions for: Heart Healthy Diet Activities you can perform: Regular-No Restrictions Follow up Referrals: Neurosurgery PCP Follow-up - 1 Week New Medications: Thiamine HCl (Gnp Vitamin B-1) 100 Mg Tab 100 MG PO DAILY Alcohol Detox #30 TAB Sukhdev Jenkins MD Sep 04, 2016 11:58
[2016-09-04 12:31] VITALS: BP 111/78; PULSE 75; RESP 19; TEMP 96.6; O2SAT 100
[2016-09-04 16:07] VITALS: BP 116/77; PULSE 78; RESP 18; TEMP 96.1; O2SAT 100
--- NOTE | 2016-09-04 17:00 | HHI.NSPN ---
(Delgado Gonzalez) History Chief Complaint: No complaints (Delgado Gonzalez) Interval History 08/30: The patient is a pleasant 51-year-old lady who states that she was rather intoxicated on 27 August and recalls falling and probably striking her head. She does not really seem to recall any details. Since then she has had some pain and swelling over the left forehead and some pain in her left hand. She presented to the emergency room today primarily because of pain in her left rib cage and her left wrist. The course of her emergency room evaluation she has undergone a CT scan of the head which initially revealed a large hemorrhagic mass in the corpus callosum measuring approximately 3 x 4 cm with surrounding vasogenic edema primarily in the right frontal lobe. An MRI and a CT angiogram of the brain have also been subsequently performed. The patient denies any recent headaches. She gives a vague history of occasional migraine headaches. She denies any dizziness, blurred vision diplopia ,speech difficulty, significant memory loss, word finding difficulty, pain weakness and numbness in the upper or lower extremities or difficulty with ambulation or coordination. She indicates general fatigue and decreased appetite over the past few weeks but seems to indicate that this is not unusual for her. No fevers or chills. 08/31: Remained stable, and no headache blurred vision diplopia speech difficulty weakness or numbness in the extremities. 09/02: Stereotactic biopsy by Dr Vanegas, post-operatively transferred to [facility] for further monitoring. 09/03: The patient is doing well this morning when seen. She is sitting up in bed and ready to eat breakfast. She states she had some pain to the surgical site earlier relieved with morphine and nausea secondary to the morphine relieved with medication. She had no complaints when seen. 09/04: The patient continues to do well when seen this afternoon. She is sitting up in bed and is dressed to be discharged home. She had no complaints. (Delgado Gonzalez) System Review Comments Constitutional: Patient denies any fever or chills. HEENT: Patient denies any pain to the surgical site or any visual or hearing difficulty. Respiratory: Patient denies any shortness of breath or productive cough. Cardiovascular: Patient denies any chest pain, palpitations or irregular heartbeat. Gastrointestinal: Patient denies any abdominal pain, nausea, vomiting or incontinence of stool. Genitourinary: Patient denies any incontinence of urine. Musculoskeletal: Patient with aching to the left wrist. Neurologic: Patient denies any headache, dizziness, numbness or tingling. ( Delgado Gonzalez) Exam Results Vital Signs Date Time Temp Pulse Resp B/P Pulse Ox O2 Delivery O2 Flow Rate FiO2 09/04/16 16:07 96.1 78 18 116/77 100 09/03/16 07:00 Room Air 09/02/16 13:15 3 Intake and Output 09/03/16 09/03/16 09/04/16 08:00 16:00 00:00 Intake Total 1417 ml 2035 ml 240 ml Balance 1417 ml 2035 ml 240 ml (Delgado Gonzalez) Physical Examination GENERAL: Awake & alert, sitting up in bed, readily interacts, normal affect, no apparent distress. HEENT: Normocephalic, right frontal jessy hole w/intact steri-strips w/dried sanguinous drainage noted, no erythema, streaking or active drainage noted at site. Left forehead ecchymosis resolving. NECK: Active ROM w/o any pain, no JVD, trachea midline. CARDIOVASCULAR: S1S2 w/RRR w/o M/G/R, no pedal edema. RESPIRATORY: CTAB w/o W/R/R, equal excursion, nonlaboured, on RA. GASTROINTESTINAL: Abdomen soft, nontender, positive bowel sounds. MUSCULOSKELETAL: ANAYA w/o difficulty. Left short arm splint in place. NEUROLOGICAL: AAOx3 Speech clear & appropriate Follows simple commands w/o difficulty Sensation intact to light touch to all extremities Motor strength 5/5 to all major flexion & extension muscle groups (Delgado Gonzalez) Medical Decision Making Impression and Plan Impression: 1. Large hemorrhagic mass arising in the region of the corpus callosum with hemorrhage extending to the bilateral posterior frontal lobe with compression of the frontal horn of the right and left lateral ventricle. No intraventricular hemorrhage. 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 2. History of asthma-COPD CT chest abdomen and pelvis negative for primary lesion. Likely primary cerebral neoplasm CT brain w/post-surgical changes o/w no change Hypokalemia (3.9=>3.3) Patient continues to do well and is neurologically intact POD #2 () s/p: Right frontal jessy hole for stereotactic brain biopsy Plan: Discussed plan of care with patient Primary management per [employer] Adviser/Hospitalist Mobilise patient w/assistance as needed PT eval & tx Diet as tolerated Pain control Patient is able to be discharged home from NSGY's perspective To follow up in 1 week to discuss biopsy results (Delgado Gonzalez) Attending Statement I have personally seen and examined the patient on the date of this note. Pertinent documentation and study results have been reviewed by the undersigned. I have personally developed the treatment plan and performed medical decision making. Agree with findings, exam, and treatment plan as noted above. Patient is awake and alert today. No focal neurologic deficit. No significant headache. No nausea or vomiting. Pathology report pending. She looks stable for discharge home today. We will see her back in the office next week for suture removal and discuss pathology results. Signs and symptoms to watch were fully discussed. She understands to come back to the emergency room if any significant changes occur. (Keenan Vanegas MD) Delgado Gonzalez Sep 04, 2016 17:00 Keenan Vanegas MD Sep 04, 2016 19:23
--- NOTE | 2016-09-04 18:11 | HHI.DS ---
Discharge Summary Admission Date Aug 30, 2016 at 18:07 Discharge Date: Sep 04, 2016 Admitting Diagnosis intracranial hemorrhage, left rib contusion, left wrist contusion (1) Intracranial space-occupying lesion found on diagnostic imaging of central nervous system Diagnosis: Principal ICD Code: R90.0 (2) Intracranial hemorrhage Diagnosis: Principal ICD Code: I62.9 Procedures 09/02/16 ; Right jessy hole for stereotactic brain biopsy CBC/BMP: 09/03/16 0342 09/03/16 0342 Significant Findings Laboratory Tests Test 09/02/16 09/03/16 17:48 03:42 Blood Urea Nitrogen 4 MG/DL (7-18) 4 MG/DL (7-18) Random Glucose 156 MG/DL 188 MG/DL (74-106) (74-106) Red Blood Count 3.60 MIL/MM3 (4.00-5.30) Hematocrit 34.1 % (35.0-46.0) Neutrophils (%) (Auto) 71.7 % (16.0-70.0) Monocytes (%) (Auto) 8.5 % (0.0-8.0) Potassium Level 3.3 MEQ/L (3.5-5.1) Imaging Last Impressions Head CT 09/02/16 1130 Signed Impressions: Service Date/Time: Friday, September 02, 2016 12:17 - CONCLUSION: Post craniotomy changes and otherwise no significant change. Eliud Whittaker MD Chest CT 08/31/16 0600 Signed Impressions: Service Date/Time: Wednesday, August 31, 2016 08:10 - CONCLUSION: Normal examination. Jose Carlos Canales MD Abdomen/Pelvis CT 08/31/16 0600 Signed Impressions: Service Date/Time: Wednesday, August 31, 2016 08:10 - CONCLUSION: Lobulated uterus raises the possibility of multiple leiomyoma. Outpatient ultrasound of the uterus may be helpful to better characterize these lesions. No evidence of adenopathy, mass, or etiology for metastatic disease is identified. Jose Carlos Canales MD Ribs X-Ray 08/30/16 141 Signed Impressions: Service Date/Time: Tuesday, August 30, 2016 15:39 - CONCLUSION: Negative left rib series. Dani Silva MD Hand X-Ray 08/30/16 141 Signed Impressions: Service Date/Time: Tuesday, August 30, 2016 15:41 - CONCLUSION: 1. The metacarpal bones are intact. 2. Calcifications adjacent to the medial aspect of the 1st digit MCP joint of uncertain significance, could represent avulsion injury. Recommend correlation clinically sent for point tenderness in this area. Dani Silva MD Wrist X-Ray 08/30/16 Signed Impressions: Service Date/Time: Tuesday, August 30, 2016 15:42 - CONCLUSION: No navicular fracture seen. Dani Silva MD Neck CTA 08/30/16 Signed Impressions: Service Date/Time: Tuesday, August 30, 2016 18:26 - CONCLUSION: Negative for hemodynamically significant stenosis. Jayme Beauchamp MD FACR Head CTA 08/30/16 Signed Impressions: Service Date/Time: Tuesday, August 30, 2016 18:26 - CONCLUSION: There is no aneurysm. Jayme Beauchamp MD FACR Brain MRI 08/30/16 Signed Impressions: Service Date/Time: Tuesday, August 30, 2016 16:59 - CONCLUSION: Glioma versus glioblastoma, glioblastoma is favored involving the genu of the corpus callosum. The area is associated with hemorrhage and intense enhancement. Jayme Beauchamp MD FACR Hospital Course Patient underwent the above noted procedure performed without complication. Post operative course uneventful. Diet and activity advanced. Stable VS with intact neurologic exam on day of discharge. Pt Condition on Discharge: Good Discharge Disposition: Discharge Home Discharge Instructions DIET: Follow Instructions for: Heart Healthy Diet ACTIVITIES You can perform: Weight Bearing As Jaiden Activities to Avoid: Lifting/Bending, Strenuous Activity Follow up Referrals: Neurosurgery PCP Follow-up - 1 Week New Medications: Thiamine HCl (Gnp Vitamin B-1) 100 Mg Tab 100 MG PO DAILY Alcohol Detox #30 TAB Keenan Vanegas MD Sep 04, 2016 18:11
== END 2016-09-04 18:18 | disposition home or self-care (01) | DRG 70 ==
LOC: NEPE 13:47 → NEDA 18:07 → N03A 21:29 → N05A 09-01 03:25 → N03B 09-02 13:00 → N03A 09-02 15:00 → N05B 09-03 17:25
PROVIDERS: ADMIT Hospitalist; ATTEND Hospitalist
PROC: 00B73ZX Excision of Cerebral Hemisphere, Percutaneous Approach, Diagnostic (ICD-10-PCS; principal; 2016-09-02 09:46)
DX: G93.89 Other specified disorders of brain (principal); I61.8 Other nontraumatic intracerebral hemorrhage; S06.0X9A Concussion with loss of consciousness of unspecified duration, initial encounter; L40.9 Psoriasis, unspecified; J44.9 Chronic obstructive pulmonary disease, unspecified; F17.210 Nicotine dependence, cigarettes, uncomplicated; Z86.73 Personal history of transient ischemic attack (TIA), and cerebral infarction without residual deficits; S20.212A Contusion of left front wall of thorax, initial encounter; W01.0XXA Fall on same level from slipping, tripping and stumbling without subsequent striking against object, initial encounter; S60.212A Contusion of left wrist, initial encounter; F10.10 Alcohol abuse, uncomplicated; E87.6 Hypokalemia
CPT/HCPCS: 70450; 70496; 70498; 70553; 71101; 71260; 73100; 73130; 74177; 80048; 83036; 83735; 84100; 85025; 85610; 85730; 87641; 88307; 93005; 94150; 96374; 96375; A9579; C1713; J0360; J1100; J1580; J2060; J2250; J2270; J2370; J2550; J3010; J7030; J7120; L3808; Q9967

== ENCOUNTER 2016-09-27 15:14 | Emergency (ER) | payer OTHER ==
[~2016-09-27] VITALS: Ht 180.3 cm; Wt 75.0 kg
[~2016-09-27 15:14] MED LIST changes: -ALBU8I INH; -BETAM.05%T TOP; -DIPH2%T PO; -FOLI1 PO; +GNP100TA3 PO; -IBUP400 PO; -METH2.5 PO
[2016-09-27 15:15] VITALS: BP 125/89; PULSE 94; RESP 15; TEMP 98.2; O2SAT 98
--- NOTE | 2016-09-27 15:36 | PD ---
HPI . headache, arm twitching, leg twitching few days and wants biopsy results Chief Complaint: Neuro Symptoms/ Deficits Time Seen by Provider: 15:36 Travel History International Travel<30 days: No Contact w/Intl Traveler<30days: No Traveled to known affect area: No History of Present Illness HPI 51-year-old female here with complaints of intermittent headache relieved by Aleve, arm twitching on the left side, leg twitching on the left side for the past several days since discharge from the hospital on September 02, 2016. Patient also requesting results of her brain biopsy. I'm very familiar with this patient as she used to be one of my patients in the [facility] clinic. She has a long-standing history of psoriasis and alcoholism. Patient was seen here in the emergency department in early August status post fall and had an incidental finding of a hemorrhagic brain mass. Subsequently she was admitted and brain biopsy was performed on September 02, 2016. As per the reports in the computer, the results were just reported yesterday. 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 She tells me that she has intermittent episodes of headaches that are very mild and relieved with Aleve. She also has some intermittent twitching of her left arm and left leg. Her primary reason for coming to the emergency department is to figure out why she is twitching and to get the results of her brain biopsy if they are possible. She tells me she's tried to reach out to neurosurgery and has not heard anything back. PFSH Past Medical History Asthma: Yes Anxiety: No Depression: No Cancer: No COPD: Yes Cerebrovascular Accident: Yes (10 yrs ago) Diminished Hearing: No Endocrine: No Immune Disorder: No Psychiatric: No Respiratory: Yes (asthma) Integumentary: Yes (psoriasis) Immunizations Current: Yes ?: Not LMP: 3 YEARS AGO Menopausal: Yes Social History Alcohol Use: Yes Tobacco Use: Yes Substance Use: No Allergies-Medications (Allergen,Severity, Reaction): Coded Allergies: Penicillin (Verified Adverse Reaction, Severe, Nausea/Vomiting, 09/27/16) Reported Meds & Prescriptions Reported Meds & Active Scripts Active Reported Aleve PM (Naproxen Sodium-Diphenhydramine) 220-25 Mg Tab 1 Tab PO HS PRN Vitamin B-12 (Cyanocobalamin) 1,000 Mcg Tab 1,000 Mcg PO DAILY Folic Acid 400 Mcg Tab 400 Mcg PO DAILY Biotin Maximum Strength (Biotin) 10,000 Mcg Tab 5,000 Mcg PO DAILY Review of Systems General / Constitutional: No: Fever Eyes: No: Visual changes HENT: No: Headaches Cardiovascular: No: Chest Pain or Discomfort Respiratory: No: Shortness of Breath Gastrointestinal: No: Abdominal Pain Genitourinary: No: Dysuria Musculoskeletal: No: Pain Skin: No Rash Neurologic: Positive: Headache, Other (muscle twitching upper and lower extremity left side), No: Weakness Psychiatric: No: Depression Endocrine: No: Polydipsia Hematologic/Lymphatic: No: Easy Bruising Physical Exam Narrative GENERAL: AAO x 3, no acute distress, Well-nourished, well-developed patient. SKIN: Warm and dry. No visible rashes or bruising. right side of scale sutures in place without evidence of infection or wound dehiscence HEAD: Normocephalic and atraumatic. EYES: No scleral icterus. No injection or drainage. EOM intact, PERRLA ENT: No nasal drainage noted. Mucous membranes pink. Airway patent. NECK: Supple, trachea midline. No JVD. CARDIOVASCULAR: Regular rate and rhythm without murmurs, gallops, or rubs. RESPIRATORY: Breath sounds equal bilaterally. No accessory muscle use. No rhonchi or rales. GASTROINTESTINAL: Abdomen soft, non-tender, nondistended. EXTREMITIES: No cyanosis or edema. left arm in splint, BACK: No obvious deformity. NEURO: CN II-12 intact, engineering group leader strength normal b/l, UE and LE 5/5, no focal deficits PSYCH: AAO x 3, normal affect. Data Data Last Documented VS Vital Signs Date Time Temp Pulse Resp B/P Pulse Ox O2 Delivery O2 Flow Rate FiO2 09/27/16 16:05 97.8 78 17 122/81 99 MDM Medical Decision Making Medical Screen Exam Complete: Yes Emergency Medical Condition: Yes Medical Record Reviewed: Yes Differential Diagnosis glioblastoma stage IV, paresthesias due to glioblastoma, headaches due to brain tumor Narrative Course 51-year-old female well known to me from the [facility] here with complaints of intermittent mild headaches, upper and lower extremity twitching of muscles on the left side of her body for the past several days. She also wants to know the results of her brain biopsy. Records have been reviewed and patient appears to have a glioblastoma stage IV. I have discussed findings with my attending Dr. Garrett. Unfortunately there is not much that we can do in the emergency room for her issues. She is not having any neuro abnormalities now and truly wants to know here biopsy results. I have discussed with the ANKIT Medina, in the community clinic, who will see the patient today and send her for outpatient neurosurgery appointment. I have also spoken to Dr. Tish Power, who is now aware of patient's condition. She has advised me to have the patient f/u outpatient and see neurosurgery. There may be some discussion about hospice in the future, however , patient will be sent to neurosurgery for consult prior to any additional decisions being made. I have spoken to the patient here in the ED and advised her of her biopsy results. She was transported to the community clinic and was seen by ANKIT Baez. I had a f/u discussion with ANKIT. Patient verbalized understanding of instructions, questions were answered, and thanked me for their care. I advised them if their condition worsens, please return to the nearest emergency room for further care. Diagnosis Primary Impression: Glioblastoma determined by biopsy of brain Patient Instructions: General Instructions Additional Instructions: Please head over to the community clinic today so that they can make further arrangements for your care. Glioblastoma Stage IV, please do your research about this condition as we discussed. Med/Other Pt SpecificInfo: No Change to Meds Disposition: 01 DISCHARGE HOME Condition: Stable Noreen Kwon Sep 27, 2016 15:36
[2016-09-27] MEDS ORDERED: NAPR1TAB98 PO (15:41)
[2016-09-27] MEDS ORDERED: BIOT1TAB2 PO (15:41)
[2016-09-27] MEDS ORDERED: VITA10002 PO (15:41)
[2016-09-27] MEDS ORDERED: FOLI400T PO (15:41)
[2016-09-27 16:05] VITALS: BP 122/81; TEMP 97.8
== END 2016-09-27 16:19 | disposition home or self-care (01) ==
LOC: NEPE 15:14
DX: C71.9 Malignant neoplasm of brain, unspecified (principal); Z86.73 Personal history of transient ischemic attack (TIA), and cerebral infarction without residual deficits; J44.9 Chronic obstructive pulmonary disease, unspecified
CPT/HCPCS: 99281

== ENCOUNTER 2016-11-24 01:20 | Emergency (ER) | payer OTHER ==
[~2016-11-24] VITALS: Ht 182.9 cm; Wt 76.0 kg
[~2016-11-24 01:20] MED LIST changes: +BIOT1TAB2 PO; +FOLI400T PO; -GNP100TA3 PO; +NAPR1TAB98 PO; +VITA10002 PO
[2016-11-24 01:24] VITALS: BP 128/70; PULSE 84; RESP 16; TEMP 97.1; O2SAT 98
--- NOTE | 2016-11-24 02:57 | RADRPT ---
EXAM DATE/TIME: 11/24/2016 02:18 [facility] COMPARISON: CT BRAIN W/O CONTRAST, September 02, 2016, 12:17. MRI BRAIN W & W/O CONTRAST, October 10, 2016, 15:18. INDICATIONS : Trauma, fall. ETOH. RADIATION DOSE: 56.35 CTDIvol (mGy) MEDICAL HISTORY : Chronic obstructive pulmonary disease. CVA. Brain tumor. SURGICAL HISTORY : Tumor removal. ENCOUNTER: Initial ACUITY: 1 day PAIN SCALE: 0/10 LOCATION: cranial TECHNIQUE: Multiple contiguous axial images were obtained of the head. Using automated exposure control and adj ustment of the mA and/or kV according to patient size, radiation dose was kept as low as reasonably a chievable to obtain optimal diagnostic quality images. DICOM format image data is available electro nically for review and comparison. FINDINGS: Correlation is made with recent MRI. There is a heterogeneously enhancing mass involving the rostrum of the corpus callosum and extending into the interhemispheric fissure measuring at least 2.7 cm in d iameter. Overall appearance is similar to recent MRI. There is some surrounding edema.. There is some edema and encephalomalacia in the posterior aspect of the right corpus callosum region. No hydroceph alus. No acute bony abnormality. CONCLUSION: 1. Known anterior brain mass as above with surrounding edema similar appearance to prior MRI from Sep. No acute intracranial hemorrhage. Blair Thao MD on November 24, 2016 at 2:50 Board Certified Radiologist. This report was verified electronically.
--- NOTE | 2016-11-24 03:00 | RADRPT ---
EXAM DATE/TIME: 11/24/2016 02:19 [facility] COMPARISON: No previous studies available for comparison. INDICATIONS : Trauma, fall. ETOH. RADIATION DOSE: 33.47 CTDIvol (mGy) MEDICAL HISTORY : Chronic obstructive pulmonary disease. CVA. SURGICAL HISTORY : None. ENCOUNTER: Initial ACUITY: 1 day PAIN SCALE: 0/10 LOCATION: neck TECHNIQUE: Volumetric scanning of the cervical spine was performed. Multiplanar reconstructions in the sagittal, coronal and oblique axial planes were performed. Using automated exposure control and adjustment o f the mA and/or kV according to patient size, radiation dose was kept as low as reasonably achievable to obtain optimal diagnostic quality images. DICOM format image data is available electronically f or review and comparison. FINDINGS: No acute fracture or spondylolisthesis. No prevertebral soft tissue swelling. Moderate to severe dege nerative disc disease at C5-6 and C6-7 with mild AP canal and foraminal stenosis. CONCLUSION: 1. No acute findings. Moderate to severe degenerative change in the lower cervical spine. Blair Thao MD on November 24, 2016 at 2:56 Board Certified Radiologist. This report was verified electronically.
[2016-11-24] MEDS ORDERED: LIDOCAINE HCL 1% 50 ML VIAL ONE (03:20)
--- NOTE | 2016-11-24 03:40 | PD ---
HPI Chief Complaint: Laceration/Skin Injury Time Seen by Provider: 03:33 Travel History International Travel<30 days: No Contact w/Intl Traveler<30days: No Traveled to known affect area: No History of Present Illness HPI 51-year-old white female presents to emergency department by EMS for evaluation of a fall. The patient had been drinking alcohol. She had stumbled going up the stairs this evening striking her right face. No syncope. No nausea vomiting. The patient did sustain a 4 cm laceration to her right forehead. No neck or back pain. No numbness, tingling or weakness. PFSH Past Medical History Asthma: Yes Anxiety: No Depression: No Cancer: No COPD: Yes Cerebrovascular Accident: Yes (10 yrs ago) Diminished Hearing: No Endocrine: No Immune Disorder: No Neurologic: Yes (stroke ) Psychiatric: No Respiratory: Yes (asthma) Integumentary: Yes (psoriasis) Immunizations Current: Yes Tetanus Vaccination: < 5 Years ?: Not Menopausal: Yes Past Surgical History Neurologic Surgery: Yes (brain biopsy ) Other Surgery: Yes (breast biopsy 20 years ago) Social History Alcohol Use: Yes (4 beers daily ) Tobacco Use: Yes (10 cigarretes per day) Substance Use: No (pt denies ) Allergies-Medications (Allergen,Severity, Reaction): Coded Allergies: penicillin G (Unverified Adverse Reaction, Severe, Nausea/Vomiting, ) Reported Meds & Prescriptions Reported Meds & Active Scripts Active Reported Aleve PM (Naproxen Sodium-Diphenhydramine) 220-25 Mg Tab 1 Tab PO HS PRN Vitamin B-12 (Cyanocobalamin) 1,000 Mcg Tab 1,000 Mcg PO DAILY Folic Acid 400 Mcg Tab 400 Mcg PO DAILY Biotin Maximum Strength (Biotin) 10,000 Mcg Tab 5,000 Mcg PO DAILY Review of Systems Except as stated in HPI: all other systems reviewed are Neg Physical Exam Narrative GENERAL: Well-developed, well-nourished in no apparent distress. Nontoxic appearing. Patient appears intoxicated. HEAD: Patient has a 4 cm laceration to right forehead. Mild swelling. No step- off. EYES: Pupils equal round and reactive. Extraocular motions intact. No scleral icterus. No injection or drainage. ENT: Nose clear. Throat without erythema, tonsillar hypertrophy or exudate. Uvula midline. Airway patent. NECK: Trachea midline. Supple, nontender, moves head freely. No central bony tenderness or spasm. CARDIOVASCULAR: Regular rate and rhythm without murmurs, gallops, or rubs. RESPIRATORY: Clear to auscultation. Breath sounds equal bilaterally. No wheezes , rales, or rhonchi. GASTROINTESTINAL: Abdomen soft, non-tender, nondistended. No hepato-splenomegaly , or palpable masses. No guarding. EXTREMITIES: No clubbing, cyanosis, or edema. No joint tenderness. BACK: Nontender without deformity. No flank tenderness. NEUROLOGICAL: Awake, alert and oriented x 3 .Cranial nerves grossly intact. Motor and sensory grossly within normal limits. Normal speech. Skin: Patient has multiple plaques associated with psoriasis Data Data Last Documented VS Vital Signs Date Time Temp Pulse Resp B/P (MAP) Pulse Ox O2 Delivery O2 Flow Rate FiO2 11/24/16 01:24 97.1 84 16 128/70 (89) 98 Room Air Orders Orders Ct Brain W/O Iv Contrast(Rout) (11/24/16 ) Ct Cerv Spine W/O Contrast (11/24/16 ) Lidocaine 1% Inj (50 Ml) (Xylocaine 1% I (11/24/16 03:20) MDM Medical Decision Making Medical Screen Exam Complete: Yes Emergency Medical Condition: Yes Medical Record Reviewed: Yes Interpretation(s) CT brain:CONCLUSION: 1. Known anterior brain mass as above with surrounding edema similar appearance to prior MRI from October 10. No acute intracranial hemorrhage. CT cervical spine: Negative for fracture Differential Diagnosis MDM: High Differential diagnoses: Fracture, sprain, strain, dislocation, contusion, neurovascular injury Narrative Course Patient's CAT scan of the head and neck are negative for acute trauma. Patient laceration is close to sutures. Patient has been medically cleared and will be allowed to sleep it off here and- year-old be discharged in the morning when she exhibits sobriety Procedures Procedure Narrative LACERATION LOCATION: Right forehead LENGTH: 4 cm NUMBER OF STITCHES/LEOLA: Single running REPAIR: The area of the laceration was prepped with Betadine and sterilely draped. The laceration was infiltrated with 1% lidocaine. The wound was copiously irrigated and explored without evidence of foreign body, tendon injury or neurovascular injury. The wound was closed using 5-0 plain gut. This was a simple single layer repair. A sterile dressing was applied. The patient was advised to keep the dressing clean and dry. Patient tolerated the procedure well. Diagnosis Primary Impression: Facial laceration Qualified Codes: S01.81XA - Laceration without foreign body of other part of head, initial encounter Additional Impressions: Alcohol dependence Qualified Codes: F10.220 - Alcohol dependence with intoxication, uncomplicated Glioblastoma determined by biopsy of brain Patient Instructions: General Instructions Additional Instructions: Rest. Head precautions. Tylenol for pain. Ice packs. Avoid alcohol. Daily wound care with soap, water, Neosporin. Avoid all sedating or intoxicating substances. Recheck with your physician within 1-2 days. Return to the ER for any problems. Med/Other Pt SpecificInfo: Wound Care Disposition: DISCHARGE HOME Condition: Stable Blair Garcia Nov 24, 2016 03:40
[2016-11-24] MEDS ORDERED: LIDOCAINE HCL 1% 50 ML VIAL INFIL ONE (04:15)
--- NOTE | 2016-11-24 04:22 | PD ---
Data Data Last Documented VS Vital Signs Date Time Temp Pulse Resp B/P (MAP) Pulse Ox O2 Delivery O2 Flow Rate FiO2 11/24/16 01:24 97.1 84 16 128/70 (89) 98 Room Air Orders Orders Ct Brain W/O Iv Contrast(Rout) (11/24/16 ) Ct Cerv Spine W/O Contrast (11/24/16 ) Lidocaine 1% Inj (50 Ml) (Xylocaine 1% I (11/24/16 03:20) Lidocaine 1% Inj (50 Ml) (Xylocaine 1% I (11/24/16 04:15) MDM Supervised Visit with ASHLEIGH: Yes Narrative Course The history, exam, and medical decision-making in the associated midlevel provider note were completed with my assistance. I reviewed and agree with the findings presented. I attest that I had a [id number] encounter with the patient on the same day, and personally performed and documented my assessment and findings in the medical record. *My assessment and Findings: This is a 51-year-old female who was recently diagnosed with a glioblastoma who presents to the emergency department intoxicated having fell and injured her head. She has a laceration on the right forehead. It was repaired by the physician temporary office assistant. CT scan demonstrates or tumor but otherwise has no acute intracranial hemorrhage. I think she'll can be discharged when sober. Diagnosis Primary Impression: Facial laceration Qualified Codes: S01.81XA - Laceration without foreign body of other part of head, initial encounter Additional Impressions: Alcohol dependence Glioblastoma determined by biopsy of brain Patient Instructions: General Instructions Additional Instruction: Rest. Head precautions. Tylenol for pain. Ice packs. Avoid alcohol. Daily wound care with soap, water, Neosporin. Avoid all sedating or intoxicating substances. Recheck with your physician within 1-2 days. Return to the ER for any problems. Disposition: 01 DISCHARGE HOME Condition: Stable Eli Sanchez MD Nov 24, 2016 04:22
[2016-11-24 09:00] VITALS: BP 120/78; PULSE 76; RESP 15; O2SAT 98
== END 2016-11-24 10:50 | disposition home or self-care (01) ==
LOC: NEPE 01:20
DX: S01.81XA Laceration without foreign body of other part of head, initial encounter (principal); F10.220 Alcohol dependence with intoxication, uncomplicated; C71.9 Malignant neoplasm of brain, unspecified; W10.9XXA Fall (on) (from) unspecified stairs and steps, initial encounter; Y92.9 Unspecified place or not applicable; J44.9 Chronic obstructive pulmonary disease, unspecified; Z72.0 Tobacco use
CPT/HCPCS: 12013; 70450; 72125